=== PATIENT | female | born 1940 | race Caucasian/White ===

== ENCOUNTER → 2016-12-08 | Outpatient (CLI) | payer BC ==
[~2016-12-08] MED LIST: ATEN-173 PO; ATOR-22 PO; CALC-393 PO; CLOP1TAB15 PO; LEVA45AE INH; LEVO112T4 PO; MELA5CAP PO; MULTTAB58 PO; VITAMIN D PO; VNTHFA/IN INH
--- NOTE | 2016-12-08 13:08 | DIAGNOSTIC IMAGING REPORT ---
SACRUM AND COCCYX 3 VIEWS CLINICAL HISTORY: Fall with sacrococcygeal pain. FINDINGS: 3 views of the sacrum and coccyx are correlated with left hip radiographs dated 02/14/2013. The skeletal structures are osteopenic. There is no radiographic evidence of fracture involving the sacrum or coccyx. Mild sclerotic degenerative change is noted in the sacroiliac joints. The remainder the bony pelvis appears intact as visualized. Calcified phleboliths are noted in the pelvis. IMPRESSION: Osteopenia and degenerative change as above. There is no radiographic evidence of sacrococcygeal fracture. Electronically signed by: Jace Lance M.D. 12/08/2016 1:07 PM Dictated Date/Time: 12/08/2016 1:05 PM
== END | disposition home or self-care (01) ==
LOC: C.RAD1850 12:44
PROVIDERS: ATTEND Internal Medicine Cardiovascular Disease
DX: Z91.81 History of falling (principal); M85.88 Other specified disorders of bone density and structure, other site

== ENCOUNTER → 2017-01-05 | Outpatient (CLI) | payer BC ==
[2017-01-05 11:08] LABS: HEMATOCRIT 44.3 % (37-47); MEAN CELL VOLUME 97.4 fL (80-100); MEAN CORPUSCULAR HEMOGLOBIN 32.7 pg (25-34); MEAN CORPUSCULAR HGB CONC 33.6 g/dl (32-36); MEAN PLATELET VOLUME 11.1 fL (7.4-10.4); PLATELET COUNT 207 K/uL (130-400); RED BLOOD COUNT 4.55 M/uL (4.2-5.4); WHITE BLOOD COUNT 3.83 K/uL (4.8-10.8)
[2017-01-05 11:59] LABS: CHOLESTEROL/HDL RATIO 2.1; THYROID STIMULATING HORMONE 0.525 uIu/ml (0.300-4.500)
[2017-01-05 12:04] LABS: ESTIMATED AVERAGE GLUCOSE 117 mg/dl; HA1C FLAG Normal (Normal)
--- NOTE | 2017-01-09 12:08 | CODING QUERY MEDICAL NECESSITY ---
SUPPORTING DIAGNOSIS NEEDED A supporting diagnosis is required for the test/procedure performed on this patient in order for us to be reimbursed by the patient's insurance. Please provide a supporting diagnosis for the following test/procedure listed below next to the test name along with your signature. *If there is no additional diagnosis for this patient that would support the following test/procedure please document that below next to the test/procedure. Test(s)/Procedure(s) that require a supporting diagnosis: DOS 01/05 * Hba1c DIAGNOSIS: Provider Signature: Date: Thank you Rhonda Gtz Health Information Management Once completed, please kindly fax back to [phone] For questions please call [phone]
== END | disposition home or self-care (01) ==
LOC: C.LABBC 08:35
PROVIDERS: ATTEND Internal Medicine Cardiovascular Disease
DX: R73.03 Prediabetes (principal); G45.9 Transient cerebral ischemic attack, unspecified; R00.2 Palpitations; E03.9 Hypothyroidism, unspecified

== ENCOUNTER → 2017-01-13 | Outpatient (CLI) | payer BC ==
--- NOTE | 2017-01-13 15:21 | MAMMOGRAPHY REPORT ---
BILATERAL DIGITAL SCREENING MAMMOGRAM WITH CAD: 01/13/2017 CLINICAL HISTORY: Routine screening examination. TECHNIQUE: Bilateral CC and MLO views were obtained. Current study was also evaluated with a Comput er Aided Detection (CAD) system. COMPARISON: Comparison is made to exams dated: 01/08/2016 mammogram, 11/14/2013 mammogram, 11/15/2014 garima mogram, 11/11/2012 mammogram, 11/06/2011 mammogram, and 10/28/2010 mammogram - [facility] enter. BREAST COMPOSITION: There are scattered areas of fibroglandular density in both breasts. FINDINGS: A few punctate microcatheter calcifications are stable in the right breast. No new suspic ious mass, architectural distortion or cluster of microcalcifications is seen. IMPRESSION: ACR BI-RADS CATEGORY 1: NEGATIVE There is no mammographic evidence of malignancy. A 1 year screening mammogram is recommended. The p atient will receive written notification of the results. Approximately 10% of breast cancers are not detected with mammography. A negative mammographic repor t should not delay biopsy if a clinically suggestive mass is present. Tessa Parker M.D. ay/:01/13/2017 12:44:02 Spanish Lecturer: Pam PABLO(Bruno)([place]), [facility] letter sent: Normal 1/2 BI-RADS Code: ACR BI-RADS Category 1: Negative
== END | disposition home or self-care (01) ==
LOC: C.MAMM 10:23
PROVIDERS: ATTEND Obstetrics & Gynecology
DX: Z12.31 Encounter for screening mammogram for malignant neoplasm of breast (principal)

== ENCOUNTER → 2017-01-29 | Outpatient (CLI) | payer BC ==
[2017-01-29 11:26] LABS: CHOLESTEROL/HDL RATIO 2.2
== END | disposition home or self-care (01) ==
LOC: C.LABBC 08:47
PROVIDERS: ATTEND Internal Medicine
DX: G45.9 Transient cerebral ischemic attack, unspecified (principal)

== ENCOUNTER → 2017-04-01 | Outpatient (CLI) | payer BC ==
[2017-04-01 11:06] LABS: BLOOD UREA NITROGEN 12 mg/dl (7-18); BUN/CREATININE RATIO 16.9 (10-20); CARBON DIOXIDE 29 mmol/L (21-32); CHLORIDE 107 mmol/L (98-107); CREATININE 0.72 mg/dl (0.60-1.20); GLUCOSE 97 mg/dl (70-99); MAGNESIUM 2.1 mg/dl (1.8-2.4); POTASSIUM 4.2 mmol/L (3.5-5.1); SODIUM 142 mmol/L (136-145)
[2017-04-01 11:31] LABS: CALCIUM 9.5 mg/dl (8.5-10.1)
== END | disposition home or self-care (01) ==
LOC: C.LABBC 08:33
PROVIDERS: ATTEND Internal Medicine
DX: G62.9 Polyneuropathy, unspecified (principal)

== ENCOUNTER → 2017-05-06 | Outpatient (CLI) | payer BC | END | disposition home or self-care (01) | LOC: C.LABBC 07:41 | PROVIDERS: ATTEND Internal Medicine | DX: E67.2 Megavitamin-B6 syndrome (principal) ==

== ENCOUNTER → 2017-05-11 | Outpatient (CLI) | payer BC ==
[2017-05-11 12:45] LABS: ESTIMATED AVERAGE GLUCOSE 128 mg/dl; HA1C FLAG Normal (Normal)
[2017-05-11 13:12] LABS: BLOOD UREA NITROGEN 16 mg/dl (7-18); BUN/CREATININE RATIO 21.1 (10-20); CALCIUM 10.1 mg/dl (8.5-10.1); CARBON DIOXIDE 30 mmol/L (21-32); CHLORIDE 106 mmol/L (98-107); CREATININE 0.74 mg/dl (0.60-1.20); GLUCOSE 91 mg/dl (70-99); POTASSIUM 4.3 mmol/L (3.5-5.1); SODIUM 142 mmol/L (136-145)
[2017-05-11 13:23] LABS: THYROID STIMULATING HORMONE 0.255 uIu/ml (0.300-4.500)
== END | disposition home or self-care (01) ==
LOC: C.LAB1850 10:37
PROVIDERS: ATTEND Internal Medicine
DX: R73.03 Prediabetes (principal); E03.9 Hypothyroidism, unspecified

== ENCOUNTER → 2017-06-25 | Outpatient (CLI) | payer BC ==
--- NOTE | 2017-07-10 07:30 | CODING QUERY NO DIAGNOSIS ---
TREATMENT RENDERED WITHOUT A DIAGNOSIS : 1940 To promote full compliance with coding requirements relating to patient care, physician participation is requested in all cases of cable armorer operator uncertainty. Please assist us with providing a diagnosis/symptom for the test(s) below: A diagnosis/symptom was not documented on your Order. A valid diagnosis/symptom is required to bill all insurances. Please remember that we are unable to code a diagnosis of rule out, probable, possible, questionable, or suspected. Tests that require a diagnosis: DOS: 06/25/17 * VITAMIN B6 DIAGNOSIS: Provider Signature: Date: Thank you Amrita Goldberg Health Information Management Once completed, please kindly fax back to [phone] For questions please call [phone]
== END | disposition home or self-care (01) ==
LOC: C.LABBC 07:38
PROVIDERS: ATTEND Internal Medicine
DX: E67.2 Megavitamin-B6 syndrome (principal)

== ENCOUNTER → 2017-11-18 | Outpatient (CLI) | payer BC ==
--- NOTE | 2017-11-18 12:36 | DIAGNOSTIC IMAGING REPORT ---
CHEST 2 VIEWS ROUTINE CLINICAL HISTORY: R05 [id number] Fever and [id number] Shortness of breath dyspnea COMPARISON STUDY: 11/18/2012 FINDINGS: Slight interstitial prominence considered chronic. Diaphragms are smooth. No focal infiltrates. Pulmonary procedure clear. IMPRESSION: Chronic interstitial change. No acute process. The above report was generated using voice recognition software. It may contain grammatical, syntax or spelling errors. Electronically signed by: [place] M.D. 11/18/2017 12:35 PM Dictated Date/Time: 11/18/2017 12:35 PM
== END | disposition home or self-care (01) ==
LOC: C.RAD1850 12:22
PROVIDERS: ATTEND Nurse Practitioner Adult Health
DX: R50.9 Fever, unspecified (principal); R06.02 Shortness of breath; R05 Cough

== ENCOUNTER → 2018-01-12 | Outpatient (CLI) | payer BC ==
[2018-01-12 10:43] LABS: HEMOGLOBIN 14.9 g/dL (12.0-16.0); MEAN CELL VOLUME 99.3 fL (80-100); MEAN CORPUSCULAR HEMOGLOBIN 32.9 pg (25-34); MEAN CORPUSCULAR HGB CONC 33.1 g/dl (32-36); PLATELET COUNT 215 K/uL (130-400); RED CELL DISTRIBUTION WIDTH CV 12.6 % (11.5-14.5); RED CELL DISTRIBUTION WIDTH SD 45.6 fL (36.4-46.3); WHITE BLOOD COUNT 4.03 K/uL (4.8-10.8)
[2018-01-12 11:10] LABS: BLOOD UREA NITROGEN 9 mg/dl (7-18); CALCIUM 9.3 mg/dl (8.5-10.1); CARBON DIOXIDE 29 mmol/L (21-32); CHOLESTEROL 271 mg/dl (0-200); CREATININE 0.65 mg/dl (0.60-1.20); GLUCOSE 105 mg/dl (70-99); SODIUM 141 mmol/L (136-145)
[2018-01-12 11:21] LABS: LDL CHOLESTEROL CALCULATED 171 mg/dl
[2018-01-12 12:15] LABS: HEMOGLOBIN A1C 5.9 % (4.5-5.6)
== END | disposition home or self-care (01) ==
LOC: C.LABBC 07:35
PROVIDERS: ATTEND Internal Medicine
DX: R73.03 Prediabetes (principal); G62.9 Polyneuropathy, unspecified; I47.1 Supraventricular tachycardia; E03.9 Hypothyroidism, unspecified

== ENCOUNTER → 2018-01-15 | Outpatient (CLI) | payer BC ==
--- NOTE | 2018-01-15 13:54 | MAMMOGRAPHY REPORT ---
BILATERAL DIGITAL SCREENING MAMMOGRAM TOMOSYNTHESIS WITH CAD: 01/15/2018 CLINICAL HISTORY: Routine screening. Patient has no complaints. TECHNIQUE: Breast tomosynthesis in addition to standard 2D mammography was performed. Current study was also evaluated with a Computer Aided Detection (CAD) system. COMPARISON: Comparison is made to exams dated: 01/08/2016 mammogram, 01/13/2017 mammogram, 11/15/2014 mamm ogram, 11/14/2013 mammogram, 11/11/2012 mammogram, and 11/06/2011 mammogram - [facility] BREAST COMPOSITION: There are scattered areas of fibroglandular density in both breasts. FINDINGS: No suspicious masses, calcifications, or areas of architectural distortion are noted in ei ther breast. There has been no significant interval change compared to prior exams. A linear scar ma rker denotes a scar on the right upper outer breast. IMPRESSION: ACR BI-RADS CATEGORY 2: BENIGN There is no mammographic evidence of malignancy. A 1 year screening mammogram is recommended. The pa tient will receive written notification of the results. Approximately 10% of breast cancers are not detected with mammography. A negative mammographic report should not delay biopsy if a clinically suggestive mass is present. Katelin Joiner M.D. ah/:01/15/2018 12:33:33 Cath Lab Manager: Sharon HERNANDEZ)([place]), [facility] letter sent: Normal 1/2 BI-RADS Code: ACR BI-RADS Category 2: Benign
== END | disposition home or self-care (01) ==
LOC: C.MAMM 09:02
PROVIDERS: ATTEND Obstetrics & Gynecology
DX: Z12.31 Encounter for screening mammogram for malignant neoplasm of breast (principal)

== ENCOUNTER 2023-05-03 17:28 | Observation (INO) ==
--- NOTE | 2023-05-03 17:43 | Emergency Department Note ---
ED Provider Note History of Present Illness Chief Complaint: Abdominal Pain Stated Complaint: LOWER RT ABDOMINAL PAIN Time Seen by Provider: 05/03/23 17:39 This is an 82-year-old female with a history of TIA on clopidogrel every other day, paroxysmal SVT, asthma, hyperlipidemia, accompanied by her , who presents to the emergency department with 2 days of lower abdominal pain and nausea, and a subjective fever. Her abdominal pain began as some nonspecific discomfort in the lower abdomen and was initially somewhat intermittent but has become more constant and located in the right lower part of her abdomen. The pain is elicited by coughing, walking, or when she was riding here in the car, anytime they hit a bump she had increase in pain. She feels nauseous but has not vomited. Subjective fever was low-grade. She has not had any constipation or diarrhea. Denies any dysuria, hematuria, urinary frequency or hesitancy. No chest pain or shortness of breath. No back pain. She is currently finishing a Medrol Dosepak for swelling secondary to carpal tunnel release surgery that she had recently. No history of abdominal surgeries. Has had a colonoscopy in the past and was told that she had diverticulosis but no history of diverticulitis. She believes she took her Plavix yesterday, but not today Home Medications Medication Instructions Recorded Confirmed Type calcium carbonate 600 mg-vitamin 1 cap PO QAM 07/25/19 04/07/23 History D3 10 mcg (400 unit) capsule multivitamin 1 tab PO QAM 01/23/20 04/07/23 History magnesium carb,citrate,oxide 300 mg PO Q2D 12/17/21 04/07/23 History (Magnesium Complex) mecobalamin (vitamin B12) 1,000 1,000 mcg PO QAM 09/29/22 04/07/23 History mcg chewable tablet atenolol 25 mg tablet 25 mg PO HS #90 tabs 10/15/22 04/07/23 Rx buspirone 5 mg tablet 5 mg PO BID PRN anxiety #30 tabs 01/07/23 04/07/23 Rx cholecalciferol (vitamin D3) 25 11,000 unit PO QAM 01/07/23 04/07/23 History mcg (1,000 unit) tablet (Vitamin D3) clopidogrel 75 mg tablet 75 mg PO Q2D 01/07/23 04/07/23 History ezetimibe 10 mg tablet 10 mg PO QAM 01/07/23 04/07/23 History levothyroxine 112 mcg tablet 112 mcg PO QAM #90 tabs 01/07/23 04/07/23 Rx cyclobenzaprine 5 mg tablet 5 mg PO TID PRN muscle pain #30 02/10/23 04/07/23 Rx tabs hydrocodone 5 mg-acetaminophen 325 1 tab PO Q6H PRN pain #20 tabs 04/16/23 Rx mg tablet methylprednisolone 4 mg tablets in 4 mg PO UD #21 ea 04/28/23 04/28/23 Rx a dose pack (Medrol (Ignacio)) Allergies Allergy/AdvReac Type Severity Reaction Status Date / Time cephalexin Allergy Intermediate hives Verified 04/16/23 08:36 levofloxacin Allergy Intermediate RASH Verified 04/16/23 08:36 cantaloupe Allergy Mild ITCHY Verified 04/16/23 08:36 MOUTH WITH MELONS/CANTALOPE,WATERMELON,CANTALOPE cat dander Allergy Mild itchy eye Verified 04/16/23 08:36 and sneeze melon Allergy Mild ITCHY Verified 04/16/23 08:36 MOUTH WITH MELONS/CANTALOPE,WATERMELON,CANTALOPE tramadol Allergy Mild ITCHING Verified 04/16/23 08:36 vaccine adjuvant system, Allergy Mild Unresponsiv Verified 04/16/23 08:36 [id number] liposomal e [From Shingrix (PF)] varicella-zoster virus Allergy Mild Unknown Verified 04/16/23 08:36 glycoprotein E, recombinant [From Shingrix (PF)] amoxicillin Allergy Unknown itching Verified 04/16/23 08:36 hazelnut Allergy Unknown ITCHY MOUTH Verified 04/16/23 08:36 oxycodone Allergy Unknown Unknown Verified 04/16/23 08:36 squash Allergy Unknown GI SYMPTOMS Verified 04/16/23 08:36 zoster vaccine live Allergy Unknown rash, Verified 04/16/23 08:36 swelling crab AdvReac Unknown stomach Verified 04/16/23 08:36 ache Past Med/Surg History Medical History Asthma NO REGULAR USE OF INHALERS Carpal tunnel syndrome, bilateral Chronic constipation Confusion mild confusion - seen Dr Delaney in 11/30 Drug allergy Expressive aphasia ?TIA? 2016-PLACED ON PLAVIX-NO ISSUES SINCE PER PT-F/U DR DELANEY Hx of seasonal allergies Hyperlipidemia Hypothyroidism Idiopathic progressive polyneuropathy Migraine VISUAL DISTURBANCE-NO HEADACHE-F/U DR DELANEY Mild obstructive sleep apnea does not use device Neck muscle spasm Osteopenia Paroxysmal SVT (supraventricular tachycardia) pt denies Premature ventricular contractions takes atenolol; f/u Dr. [place], [facility] [place] Pulmonary nodule follow with [facility] Rosacea Sleep disturbances Surgical History H/O hand surgery [facility]. Trigger finger surgery Oct 2020 History of carpal tunnel surgery of left wrist [facility] 03/2022 S/P cataract surgery R/L S/P colonoscopy S/P dilatation and curettage S/P knee surgery RIGHT SCOPE S/P spinal surgery l4 -5 S/P trigger finger release Family History Mother Family history of diabetes mellitus Pure hypercholesterolemia Hypertension Glaucoma Stroke syndrome Diabetes Stroke Father Stroke syndrome Myocardial infarction Heart disease Other No family history of allergies No family history of bleeding disorder Denies family history of Ovarian cancer Prostate cancer Hearing loss Breast cancer Colorectal cancer Cancer Asthma Social History Smoking Status: Former smoker Tobacco Type: Cigarettes packs per day: 1; Second Hand Exposure: Yes (hx growing up); Do You Dip or Chew Tobacco: No; Hx Alcohol Use: Yes Alcohol type: wine Alcohol Intake Frequency Comment: 2 glasses of wine per day Hx Substance Use: No Preferred Language: Montserratian Communication Ability: Effective Visual Impairment: No Limitations Hearing Ability: Normal Telehealth Coordinator Required: No Beliefs That Will Affect Care: None marital status: Current Living Situation: Spouse current occupational status: retired How many Children do You have: 4 Feels Safe at Home: Yes Childhood Exposure to Second-Hand Smoke: Yes Dental Care, Regularly: Yes Physical Activity Frequency: Daily Seatbelt Use: always Sunscreen Use: Yes Assistive Devices: Glasses Physical Exam Vital Signs Vital Signs - 24 hr 05/03/23 17:29 05/03/23 17:40 05/03/23 17:40 Temperature 97.9 F Temperature Source Temporal Artery Scan Pulse Rate 82 76 Pulse Rate [Apical] 79 Respiratory Rate 20 18 18 Respiratory Effort / Characteristics Non-Labored Respiratory Depth Normal Respiratory Pattern Blood Pressure 155/87 H Blood Pressure [Right Arm] 144/79 H Blood Pressure Mean 109 Blood Pressure Mean [Right Arm] 100 Pulse Oximetry 93 94 94 Oxygen Delivery Method Room Air Room Air Sepsis Recent Fever Within 48 Hours No Sepsis New/Unexplained Change in Mental Status N/A Sepsis Action Taken by Nursing No Action Required 05/03/23 19:32 05/03/23 19:51 05/03/23 20:00 Temperature Temperature Source Pulse Rate 69 73 Pulse Rate [Apical] 76 Respiratory Rate 16 18 19 Respiratory Effort / Characteristics Non-Labored Respiratory Depth Normal Respiratory Pattern Regular Blood Pressure 141/73 H Blood Pressure [Right Arm] 139/72 Blood Pressure Mean 95 Blood Pressure Mean [Right Arm] 94 Pulse Oximetry 94 Oxygen Delivery Method Sepsis Recent Fever Within 48 Hours Sepsis New/Unexplained Change in Mental Status Sepsis Action Taken by Nursing 05/03/23 20:30 05/03/23 21:00 05/03/23 19:50 Temperature Temperature Source Pulse Rate 75 81 69 Pulse Rate [Apical] Respiratory Rate 20 23 Respiratory Effort / Characteristics Respiratory Depth Respiratory Pattern Blood Pressure 127/74 137/78 Blood Pressure [Right Arm] Blood Pressure Mean 91 97 Blood Pressure Mean [Right Arm] Pulse Oximetry 92 92 Oxygen Delivery Method Room Air Room Air Sepsis Recent Fever Within 48 Hours Sepsis New/Unexplained Change in Mental Status Sepsis Action Taken by Nursing CONSTITUTIONAL: Well developed, well nourished, in no acute distress, pleasant HEAD: Normocephalic, atraumatic. EYES: conjunctivae normal, extraocular muscles intact. No scleral icterus. ENMT: External ears normal. Nose with normal external appearance, no congestion. Oral mucous membranes moist. Oropharynx normal. NECK: Full active range of motion. RESPIRATORY: Breathing unlabored and symmetric. Lungs clear to auscultation bilaterally. No wheeze, rales, or rhonchi. CARDIOVASCULAR: Regular rate and rhythm. No murmurs, rubs, or gallops. ABDOMEN: Normal bowel sounds. Abdomen is soft. There is significant reproducible tenderness in the right lower quadrant at McBurney's point with positive rebound tenderness. Patient guards in this area. Positive Rovsing sign. Negative psoas or obturator signs. No additional tenderness in the abdomen. No pulsatile masses. No CVA tenderness bilaterally. MUSCULOSKELETAL: Moves all extremities at all joints without pain or difficulty. No cyanosis or edema. SKIN: [place], warm, dry. No rash NEUROLOGIC: Awake, alert, oriented. Gaze is conjugate. Face symmetric, speech normal. Moves head and all four extremities spontaneously. Sensation and strength grossly intact. PSYCHIATRIC: Appropriate. Normal affect Course Administered Medications Lactated Ringer's (Lr) 1,000 mls @ 100 mls/hr IV .Q10H SAL Stop: 06/02/23 20:14 Last Admin: 05/03/23 21:04 Dose: 100 mls/hr Documented By: KIMANI Discontinued Medications Acetaminophen (Ofirmev) 1,000 mg in 100 mls @ 400 mls/hr IV NOW STA Stop: 05/03/23 18:10 Last Infusion: 05/03/23 19:01 Dose: 0 mls/hr Documented By: Admin: 05/03/23 18:12 Dose: 400 mls/hr Documented By: SHE Sodium Chloride (Nss) 500 mls @ 999 mls/hr IV .Q31M ONE Stop: 05/03/23 18:26 Last Infusion: 05/03/23 19:01 Dose: 0 mls/hr Documented By: Admin: 05/03/23 18:13 Dose: 999 mls/hr Documented By: SHE Clindamycin Phosphate (Cleocin/D5w) 900 mg in 50 mls @ 100 mls/hr IV PREOP@2030 ONE Stop: 05/03/23 20:59 Last Admin: 05/03/23 21:04 Dose: 100 mls/hr Documented By: KIMANI Ioversol (Optiray 320 100ml) 93 ml IV ONCE ONE Stop: 05/03/23 19:18 Last Admin: 05/03/23 19:17 Dose: 93 ml Documented By: EAB Ondansetron HCl (Ondansetron Inj 2 Mg/Ml 2 Ml Vial) 4 mg IV NOW STA Stop: 05/03/23 17:57 Last Admin: 05/03/23 18:13 Dose: 4 mg Documented By: HNVinod Medical Decision Making Differential Diagnosis Appendicitis, diverticulitis, vascular event, mesenteric adenitis, ovarian pathology, cholecystitis, cholelithiasis, constipation, urinary tract infection, renal colic, pyelonephritis, malignancy, gastritis from steroids, perforation, ulceration, obstruction, among other pathology Medical Records Attestation: I reviewed the patient's medical records. (Reviewed medication list and problem list.) Laboratory Data 05/03/23 18:03 05/03/23 18:03 Lab Results 05/03/23 05/03/23 05/03/23 Range/Units 18:03 18:03 18:03 WBC 12.31 H (4.8-10.8) K/ul RBC 4.29 (4.20-5.40) M/uL Hgb 14.3 (12.0-16.0) g/dl Hct 42.1 (37.0-47.0) % MCV 98.1 (80.0-100.0) fL MCH 33.3 (25.0-34.0) pg MCHC 34.0 (32.0-36.0) g/dL RDW Std Deviation 45.3 (36.4-46.3) fL RDW Coeff of Marielos 12.7 (11.5-14.5) % Plt Count 182 (130-400) K/uL MPV 10.7 (9.4-12.4) fL Immature Gran % (Auto) 0.4 % Neut % (Auto) 72.7 % Lymph % (Auto) 13.3 % [place] % (Auto) 12.8 % Eos % (Auto) 0.6 % Baso % (Auto) 0.2 % Neut # (Auto) 8.94 H (1.40-6.50) K/uL Lymph # (Auto) 1.64 (1.2-3.4) K/uL [place] # (Auto) 1.57 H (0.11-0.59) K/uL Eos # (Auto) 0.08 (0-0.50) K/uL Baso # (Auto) 0.03 (0-0.2) K/uL Immature Gran # (Auto) 0.05 (0.01-0.20) K/uL PT Cancelled INR Cancelled APTT Cancelled PTT Ratio Cancelled Sodium TNP Potassium TNP Chloride 102 (98-107) mmol/L Carbon Dioxide 27 (21-32) mmol/L Anion Gap TNP BUN 18 (6-23) mg/dl Creatinine 0.67 (0.6-1.2) mg/dl Est Cr Clr Drug Dosing 64.6 ml/min Est GFR ( Amer) 95.5 ml/min Est GFR (Non-Af Amer) 82.4 ml/min BUN/Creatinine Ratio 26.9 H (10-20) Glucose 127 H (70-99(Fasting)) mg/dl Calcium 9.4 (8.6-10.3) mg/dl Total Bilirubin 0.8 (0.2-1.0) mg/dl AST TNP ALT 19 (7-52) U/L Alkaline Phosphatase 76 (34-104) U/L Total Protein 7.1 (6.0-8.3) gm/dl Albumin 3.8 (3.4-5.0) gm/dl Globulin 3.3 (2.5-4.0) gm/dl Albumin/Globulin Ratio 1.2 (0.9-2) Lipase 28 (11-82) U/L Urine Color Urine Appearance (Clear) Urine pH (4.5-7.5) Ur Specific Waterflow (1.000-1.030) Urine Protein (Negative) Urine Glucose (UA) (Negative) Urine Ketones (Negative) Urine Blood (Negative) Urine Nitrite (Negative) Urine Bilirubin (Negative) Urine Urobilinogen (Negative) Ur Leukocyte Esterase (Negative) Urine WBC (Auto) (0-5) /hpf Urine RBC (Auto) (0-4) /hpf U Hyaline Cast (Auto) (0-5) /lpf U Epithel Cells (Auto) (0-5) /lpf Urine Bacteria (Auto) (Negative) SARS-CoV-2, RNA, NAAT (NEGATIVE) 05/03/23 05/03/23 05/03/23 Range/Units 18:54 18:54 19:41 WBC (4.8-10.8) K/ul RBC (4.20-5.40) M/uL Hgb (12.0-16.0) g/dl Hct (37.0-47.0) % MCV (80.0-100.0) fL MCH (25.0-34.0) pg MCHC (32.0-36.0) g/dL RDW Std Deviation (36.4-46.3) fL RDW Coeff of Marielos (11.5-14.5) % Plt Count (130-400) K/uL MPV (9.4-12.4) fL Immature Gran % (Auto) % Neut % (Auto) % Lymph % (Auto) % [place] % (Auto) % Eos % (Auto) % Baso % (Auto) % Neut # (Auto) (1.40-6.50) K/uL Lymph # (Auto) (1.2-3.4) K/uL [place] # (Auto) (0.11-0.59) K/uL Eos # (Auto) (0-0.50) K/uL Baso # (Auto) (0-0.2) K/uL Immature Gran # (Auto) (0.01-0.20) K/uL PT 10.9 INR 1.0 APTT 25.4 PTT Ratio 0.9 Sodium 136 Potassium 3.7 Chloride (98-107) mmol/L Carbon Dioxide (21-32) mmol/L Anion Gap BUN (6-23) mg/dl Creatinine (0.6-1.2) mg/dl Est Cr Clr Drug Dosing ml/min Est GFR ( Amer) ml/min Est GFR (Non-Af Amer) ml/min BUN/Creatinine Ratio (10-20) Glucose (70-99(Fasting)) mg/dl Calcium (8.6-10.3) mg/dl Total Bilirubin (0.2-1.0) mg/dl AST 17 ALT (7-52) U/L Alkaline Phosphatase (34-104) U/L Total Protein (6.0-8.3) gm/dl Albumin (3.4-5.0) gm/dl Globulin (2.5-4.0) gm/dl Albumin/Globulin Ratio (0.9-2) Lipase (11-82) U/L Urine Color Urine Appearance (Clear) Urine pH (4.5-7.5) Ur Specific Waterflow (1.000-1.030) Urine Protein (Negative) Urine Glucose (UA) (Negative) Urine Ketones (Negative) Urine Blood (Negative) Urine Nitrite (Negative) Urine Bilirubin (Negative) Urine Urobilinogen (Negative) Ur Leukocyte Esterase (Negative) Urine WBC (Auto) (0-5) /hpf Urine RBC (Auto) (0-4) /hpf U Hyaline Cast (Auto) (0-5) /lpf U Epithel Cells (Auto) (0-5) /lpf Urine Bacteria (Auto) (Negative) SARS-CoV-2, RNA, NAAT NEGATIVE (NEGATIVE) 05/03/23 Range/Units 20:26 WBC (4.8-10.8) K/ul RBC (4.20-5.40) M/uL Hgb (12.0-16.0) g/dl Hct (37.0-47.0) % MCV (80.0-100.0) fL MCH (25.0-34.0) pg MCHC (32.0-36.0) g/dL RDW Std Deviation (36.4-46.3) fL RDW Coeff of Marielos (11.5-14.5) % Plt Count (130-400) K/uL MPV (9.4-12.4) fL Immature Gran % (Auto) % Neut % (Auto) % Lymph % (Auto) % [place] % (Auto) % Eos % (Auto) % Baso % (Auto) % Neut # (Auto) (1.40-6.50) K/uL Lymph # (Auto) (1.2-3.4) K/uL [place] # (Auto) (0.11-0.59) K/uL Eos # (Auto) (0-0.50) K/uL Baso # (Auto) (0-0.2) K/uL Immature Gran # (Auto) (0.01-0.20) K/uL PT INR APTT PTT Ratio Sodium Potassium Chloride (98-107) mmol/L Carbon Dioxide (21-32) mmol/L Anion Gap BUN (6-23) mg/dl Creatinine (0.6-1.2) mg/dl Est Cr Clr Drug Dosing ml/min Est GFR ( Amer) ml/min Est GFR (Non-Af Amer) ml/min BUN/Creatinine Ratio (10-20) Glucose (70-99(Fasting)) mg/dl Calcium (8.6-10.3) mg/dl Total Bilirubin (0.2-1.0) mg/dl AST ALT (7-52) U/L Alkaline Phosphatase (34-104) U/L Total Protein (6.0-8.3) gm/dl Albumin (3.4-5.0) gm/dl Globulin (2.5-4.0) gm/dl Albumin/Globulin Ratio (0.9-2) Lipase (11-82) U/L Urine Color Yellow Urine Appearance Clear (Clear) Urine pH 7.0 (4.5-7.5) Ur Specific Waterflow 1.018 (1.000-1.030) Urine Protein Negative (Negative) Urine Glucose (UA) Negative (Negative) Urine Ketones Negative (Negative) Urine Blood Negative (Negative) Urine Nitrite Negative (Negative) Urine Bilirubin Negative (Negative) Urine Urobilinogen Negative (Negative) Ur Leukocyte Esterase 2+ H (Negative) Urine WBC (Auto) 10-30 H (0-5) /hpf Urine RBC (Auto) 0-4 (0-4) /hpf U Hyaline Cast (Auto) 0 (0-5) /lpf U Epithel Cells (Auto) 10-20 H (0-5) /lpf Urine Bacteria (Auto) Negative (Negative) SARS-CoV-2, RNA, NAAT (NEGATIVE) Imaging Data Radiologist's Impression: Abdomen/Pelvis CT 05/03/23 17:56 CT OF THE ABDOMEN AND PELVIS WITH CONTRAST CLINICAL HISTORY: 2 days RLQ pain, nausea. Tender Mcburney point COMPARISON STUDY: CT of the abdomen and pelvis May 01, 2022 TECHNIQUE: Following IV administration of Optiray, axial images of the abdomen and pelvis were obtained from the lung bases to the proximal femurs. Images were reviewed in the axial, sagittal, and coronal planes. IV contrast was admini stered without complication. Automated exposure control was utilized for the study. A dose lowering technique was utilized adhering to the principles of ALARA. CT DOSE: 917.89 mGy.cm FINDINGS: Lung bases are unremarkable. No pneumatosis, free air or portal venous gas is present. A subcentimeter segment 6 hepatic lesion is unchanged. This is benign. There is no biliary or pancreatic ductal dilatation. The spleen, adrenal glands and pancreas are unremarkable. There is no hydronephrosis. There is no evidence for a bowel obstruction. A 5 mm appendicolith within the base of the appendix is noted. There are 2 additional appendicoliths within the appendix. The appendix is dilated, measuring 1.3 cm in caliber. The appendix is fluid- filled. There is moderate periappendiceal inflammation. No free air or abscess is noted. Wall thickening of the base of the appendix is noted. There is no lymphadenopathy. Major vasculature is patent. IMPRESSION: Findings consistent with acute appendicitis. 5 mm appendicolith within the base of the appendix. Fluid-filled dilated appendix with moderate periappendiceal inflammation. No free air or abscess. Wall thickening of the medial base of the cecum likely related to appendicitis. ACT 112: Negative or not required by law. Electronically signed by: Bill Liu M.D. 05/03/2023 7:22 PM MDM Narrative This is a pleasant 82-year-old female who presents to the emergency department with 2 days of lower abdominal pain accompanied by nausea and subjective fever. Pain has localized to the right lower quadrant today. On exam she is well- appearing in no acute distress with reassuring vital signs. She is certainly nontoxic. There is reproducible tenderness in the right lower quadrant with positive rebound tenderness and guarding, positive Rovsing sign. Remainder of exam is reassuring. Options of care were discussed with the patient. She was offered pain medication and wanted to try Tylenol initially. She was also given Zofran for nausea. Gentle IV fluids were administered. An IV was inserted and labs were obtained. Labs: Leukocytosis of 12.3. Coags are normal. No electrolyte disturbance. Lipase is normal. Urine pending CT of the abdomen and pelvis with contrast was obtained consistent with acute appendicitis. Case was discussed with George Crouch PA-C (general surgery) and who evaluated the patient at bedside and discussed case with Dr. Milner (general surgery). She will be treated with clindamycin due to her history of allergies. They accept the patient and will take her to the OR in 2 hours. Patient remained hemodynamically stable and did not require any additional pain medication. Impression Acute appendicitis Discharge Plan Visit Data Chief Complaint: Abdominal Pain Stated Complaint: LOWER RT ABDOMINAL PAIN ED Provider: Elijah Mendes ED Midlevel Provider: Doug King Discharge Problem: Acute appendicitis Patient Disposition: Being Evaluated by Surgeon Condition: Fair Discharge Instructions Interventions: ED Discharge Assessment Last Done: 05/03/23 21:19 Forms Stand Alone Forms: [email or web address] Prescriptions Prescriptions: No Action atenolol 25 mg tablet 25 mg PO HS Qty: 90 3RF cyclobenzaprine 5 mg tablet 5 mg PO TID PRN (Reason: muscle pain) Qty: 30 0RF mecobalamin (vitamin B12) 1,000 mcg tablet,chewable 1,000 mcg PO QAM methylprednisolone [Medrol (Ignacio)] 4 mg tablets,dose pack 4 mg PO UD Qty: 21 0RF calcium carbonate-vitamin D3 600 mg(1,500mg) -400 unit capsule 1 cap PO QAM Patient Comments: 1 cap PO DAILY; Rx Instructions: 1 cap PO DAILY; Magnesium Complex 300 mg magnesium tablet 300 mg PO Q2D ezetimibe 10 mg tablet 10 mg PO QAM clopidogrel 75 mg tablet 75 mg PO Q2D levothyroxine 112 mcg tablet 112 mcg PO QAM Qty: 90 3RF buspirone 5 mg tablet 5 mg PO BID PRN (Reason: anxiety) Qty: 30 2RF multivitamin Tablet 1 tab PO QAM cholecalciferol (vitamin D3) [Vitamin D3] 25 mcg (1,000 unit) tablet 11,000 unit PO QAM hydrocodone-acetaminophen 5-325 mg tablet 1 tab PO Q6H PRN (Reason: pain) Qty: 20 0RF Referrals Referrals: Apple Curran MD [Primary Care Provider] - Acute appendicitis Qualifiers: Acute appendicitis type: with localized peritonitis Appendicitis gangrene presence: without gangrene Appendicitis perforation presence: without perforatio n Appendicitis abscess presence: without abscess Qualified Code(s): K35.30 - Acute appendicitis with localized peritonitis, without perforation or gangrene
[2023-05-03] MEDS ORDERED: ACETAMINOPHEN 1,000 MG/100 ML VIAL IV STA (17:56)
[2023-05-03] MEDS ORDERED: ONDANSETRON INJ 2 MG/ML 2 ML VIAL IV STA (17:56)
[2023-05-03] MEDS ORDERED: SODIUM CHLORIDE 0.9% 500 ML IV ONE (17:56)
[2023-05-03 18:24] LABS: Basophils # (auto) 0.03 K/uL (0-0.2); Basophils % (auto) 0.2 %; Eosinophils # (auto) 0.08 K/uL (0-0.50); Eosinophils % (auto) 0.6 %; Hematocrit (blood only) 42.1 % (37.0-47.0); Hemoglobin 14.3 g/dl (12.0-16.0); Immature Granulocytes # (auto) 0.05 K/uL (0.01-0.20); Immature Granulocytes % (auto) 0.4 %; Lymphocytes # (auto) 1.64 K/uL (1.2-3.4); Lymphocytes % (auto) 13.3 %; Mean Corpuscular Hemoglobin 33.3 pg (25.0-34.0); Mean Corpuscular Volume 98.1 fL (80.0-100.0); Mean Platelet Volume 10.7 fL (9.4-12.4); Monocytes # (auto) 1.57 K/uL (0.11-0.59); Monocytes % (auto) 12.8 %; Neutrophils # (auto) 8.94 K/uL (1.40-6.50); Neutrophils % (auto) 72.7 %; Platelet Count 182 K/uL (130-400); RDW Coefficient of Variation 12.7 % (11.5-14.5); RDW Standard Deviation 45.3 fL (36.4-46.3); Red Blood Count 4.29 M/uL (4.20-5.40); White Blood Count 12.31 K/ul (4.8-10.8)
[2023-05-03 18:39] LABS: Alanine Aminotransferase 19 U/L (7-52); Albumin Globulin Ratio 1.2 (0.9-2); Albumin Level 3.8 gm/dl (3.4-5.0); Alkaline Phosphatase 76 U/L (34-104); BUN Creatinine Ratio 26.9 (10-20); Bilirubin,Total 0.8 mg/dl (0.2-1.0); Blood Urea Nitrogen 18 mg/dl (6-23); Calcium 9.4 mg/dl (8.6-10.3); Carbon Dioxide 27 mmol/L (21-32); Chloride 102 mmol/L (98-107); Creatinine Clr Calc Pharmacy 64.6 ml/min; Est GFR (African American) 95.5 ml/min; Est GFR (Non-African American) 82.4 ml/min; Globulin 3.3 gm/dl (2.5-4.0); Glucose 127 mg/dl (70-99(Fasting)); Lipase 28 U/L (11-82); Total Protein 7.1 gm/dl (6.0-8.3)
[2023-05-03] MEDS ORDERED: OPTIRAY 320 100ml IV ONE (19:17)
[2023-05-03 19:24] LABS: Potassium 3.7 mmol/L (3.5-5.1)
--- NOTE | 2023-05-03 19:24 | CT Scan Report ---
CT OF THE ABDOMEN AND PELVIS WITH CONTRAST CLINICAL HISTORY: 2 days RLQ pain, nausea. Tender Mcburney point COMPARISON STUDY: CT of the abdomen and pelvis May 01, 2022 TECHNIQUE: Following IV administration of Optiray, axial images of the abdomen and pelvis were obtain ed from the lung bases to the proximal femurs. Images were reviewed in the axial, sagittal, and coron al planes. IV contrast was administered without complication. Automated exposure control was utilize d for the study. A dose lowering technique was utilized adhering to the principles of ALARA. CT DOSE: 917.89 mGy.cm FINDINGS: Lung bases are unremarkable. No pneumatosis, free air or portal venous gas is present. A pearson bcentimeter segment 6 hepatic lesion is unchanged. This is benign. There is no biliary or pancreatic ductal dilatation. The spleen, adrenal glands and pancreas are unremarkable. There is no hydronephros is. There is no evidence for a bowel obstruction. A 5 mm appendicolith within the base of the appendi x is noted. There are 2 additional appendicoliths within the appendix. The appendix is dilated, measu ring 1.3 cm in caliber. The appendix is fluid-filled. There is moderate periappendiceal inflammation. No free air or abscess is noted. Wall thickening of the base of the appendix is noted. There is no l ymphadenopathy. Major vasculature is patent. IMPRESSION: Findings consistent with acute appendicitis. 5 mm appendicolith within the base of the a ppendix. Fluid-filled dilated appendix with moderate periappendiceal inflammation. No free air or abs cess. Wall thickening of the medial base of the cecum likely related to appendicitis. ACT 112: Negative or not required by law. Electronically signed by: Bill Liu M.D. 05/03/2023 7:22 PM
--- NOTE | 2023-05-03 19:37 | Emergency Department Note ---
ED Visit Note I was consulted by the Advanced Practice Provider, Doug King PA-C. I saw the patient personally and performed a substantive portion of the visit. This includes aspects of the HPI, MDM, diagnostic interpretations, and disposition/plan. .
[2023-05-03 20:00] LABS: Partial Thromboplastin Ratio 0.9; Partial Thromboplastin Time 25.4 Seconds (21.0-31.0); Prothrombin Time 10.9 Seconds (9.0-12.0)
[2023-05-03] MEDS ORDERED: CLINDAMYCIN/D5W 900 MG/50 ML BAG IV ONE (20:30)
[2023-05-03 20:51] LABS: Appearance Urine Clear (Clear); Bacteria Urine Automated Negative (Negative); Bilirubin Urine Negative (Negative); Blood Urine Negative (Negative); Cast Urine Automated 0 /lpf (0-5); Color Urine Yellow; Glucose Urine UA Negative (Negative); Ketones Urine Negative (Negative); Leukocyte Esterase Urine 2+ (Negative); Nitrite Urine Negative (Negative); Protein Urine Negative (Negative); RBC Urine Automated 0-4 /hpf (0-4); Specific Gravity Urine 1.018 (1.000-1.030); Urobilinogen Urine Negative (Negative)
--- NOTE | 2023-05-03 20:54 | History & Physical Report ---
Date of Service May 03, 2023 Assessment & Plan (1) Acute appendicitis: Plan: Due to the patient's labs, imaging, and clinical presentation she will be admitted to the hospital proceeding as follows: We will hydrate her with IV fluids Analgesia will be provided Antiemetics will be provided N.p.o. status will be implemented We will administer antibiotics. I have discussed with the patient her numerous medication allergies. She says that she is allergic to penicillin and penicillin derivatives which cause hives and rash at times. I did question her if she is ever taken clindamycin and she believes she has never taken this medication and therefore cannot delineate if she has an allergic reaction of this. We will use clindamycin for preoperative antibiotics due to her noted allergies. We have scheduled the patient for an appendectomy with Dr. Milner this evening. As the patient had a piece of toast at approximately 4:30 PM this evening we have discussed with anesthesia and can proceed with her surgery at approximately 10:30 PM. Additional recommendations be forthcoming based on her operative findings and postoperative recovery We will use SCDs for DVT prevention, no chemical means due to planned surgery She will be a level 1 full code History of Present Illness Chief Complaint: Abdominal pain Primary Care Provider: Apple Curran MD This is an 82-year-old female who presented to the emergency department secondary to abdominal pain. The patient notes that her abdominal pain began in a generalized fashion on 05/02/2023. The pain is subsequent shifted to the right lower quadrant. She has been running low-grade fevers as high as 99.8 at home. She has had nausea without vomiting. She denies any prior abdominal surgeries. Concerning the patient's pain she does not note any modifying factors. Her most recent oral intake was at approximately 4:30 PM on 05/03/2023 at which time she had a piece of toast. Patient says that she leads a very active lifestyle doing a cardiovascular workout several times per week. She does not get any chest pain or shortness of breath when she performs these activities. 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 She says that she believes she took her Plavix yesterday morning. With her TIA she did have loss of speech but she has made a full recovery and has not had any recurrence of these problems. Since arrival to the hospital the patient has had labs and imaging which I independent reviewed. Chest x-ray did not show any evidence of pneumonia. A CT scan of the abdomen pelvis showed the patient had a 5 mm appendicolith at the base of the appendix with a fluid-filled and dilated appendix with moderate periappendiceal inflammation consistent with an acute appendicitis. There is no evidence of free air or abscess. Labs include a CBC her white blood cell count was 12.3. Hemoglobin, hematocrit, platelet count were normal. Coagulation studies were normal. Chemistry profile showed sodium, potassium, BUN, and creatinine were normal. There is no elevation of LFTs or lipase. A COVID test was negative. An EKG showed sinus rhythm without changes indicative of acute ischemia At the time of my interview the patient was resting comfortably in bed and she was in no distress. Allergies Allergy/AdvReac Type Severity Reaction Status Date / Time cephalexin Allergy Intermediate hives Verified 04/16/23 08:36 levofloxacin Allergy Intermediate RASH Verified 04/16/23 08:36 cantaloupe Allergy Mild ITCHY Verified 04/16/23 08:36 MOUTH WITH MELONS/CANTALOPE,WATERMELON,CANTALOPE cat dander Allergy Mild itchy eye Verified 04/16/23 08:36 and sneeze melon Allergy Mild ITCHY Verified 04/16/23 08:36 MOUTH WITH MELONS/CANTALOPE,WATERMELON,CANTALOPE tramadol Allergy Mild ITCHING Verified 04/16/23 08:36 vaccine adjuvant system, Allergy Mild Unresponsiv Verified 04/16/23 08:36 AS01B liposomal e [From Shingrix (PF)] varicella-zoster virus Allergy Mild Unknown Verified 04/16/23 08:36 glycoprotein E, recombinant [From Shingrix (PF)] amoxicillin Allergy Unknown itching Verified 04/16/23 08:36 hazelnut Allergy Unknown ITCHY MOUTH Verified 04/16/23 08:36 oxycodone Allergy Unknown Unknown Verified 04/16/23 08:36 squash Allergy Unknown GI SYMPTOMS Verified 04/16/23 08:36 zoster vaccine live Allergy Unknown rash, Verified 04/16/23 08:36 swelling crab AdvReac Unknown stomach Verified 04/16/23 08:36 ache Home Medications Medication Instructions Recorded Confirmed Type calcium carbonate 600 mg-vitamin 1 cap PO QAM 07/25/19 04/07/23 History D3 10 mcg (400 unit) capsule multivitamin 1 tab PO QAM 01/23/20 04/07/23 History magnesium carb,citrate,oxide 300 mg PO Q2D 12/17/21 04/07/23 History (Magnesium Complex) mecobalamin (vitamin B12) 1,000 1,000 mcg PO QAM 09/29/22 04/07/23 History mcg chewable tablet atenolol 25 mg tablet 25 mg PO HS #90 tabs 10/15/22 04/07/23 Rx buspirone 5 mg tablet 5 mg PO BID PRN anxiety #30 tabs 01/07/23 04/07/23 Rx cholecalciferol (vitamin D3) 25 11,000 unit PO QAM 01/07/23 04/07/23 History mcg (1,000 unit) tablet (Vitamin D3) clopidogrel 75 mg tablet 75 mg PO Q2D 01/07/23 04/07/23 History ezetimibe 10 mg tablet 10 mg PO QAM 01/07/23 04/07/23 History levothyroxine 112 mcg tablet 112 mcg PO QAM #90 tabs 01/07/23 04/07/23 Rx cyclobenzaprine 5 mg tablet 5 mg PO TID PRN muscle pain #30 02/10/23 04/07/23 Rx tabs hydrocodone 5 mg-acetaminophen 325 1 tab PO Q6H PRN pain #20 tabs 04/16/23 Rx mg tablet methylprednisolone 4 mg tablets in 4 mg PO UD #21 ea 04/28/23 04/28/23 Rx a dose pack (Medrol (Ignacio)) Past Med/Surg History Medical History Asthma NO REGULAR USE OF INHALERS Carpal tunnel syndrome, bilateral Chronic constipation Confusion mild confusion - seen Dr Delaney in 11/30 Drug allergy Expressive aphasia ?TIA? 2016-PLACED ON PLAVIX-NO ISSUES SINCE PER PT-F/U DR DELANEY Hx of seasonal allergies Hyperlipidemia Hypothyroidism Idiopathic progressive polyneuropathy Migraine VISUAL DISTURBANCE-NO HEADACHE-F/U DR DELANEY Mild obstructive sleep apnea does not use device Neck muscle spasm Osteopenia Paroxysmal SVT (supraventricular tachycardia) pt denies Premature ventricular contractions takes atenolol; f/[facility] Mad[facility], [facility] Pulmonary nodule follow with [facility] Rosacea Sleep disturbances Surgical History H/O hand surgery [facility]. Trigger finger surgery Oct 2020 History of carpal tunnel surgery of left wrist [facility] 03/2022 S/P cataract surgery R/L S/P colonoscopy S/P dilatation and curettage S/P knee surgery RIGHT SCOPE S/P spinal surgery l4 -5 S/P trigger finger release Family History Mother Family history of diabetes mellitus Pure hypercholesterolemia Hypertension Glaucoma Stroke syndrome Diabetes Stroke Father Stroke syndrome Myocardial infarction Heart disease Other No family history of allergies No family history of bleeding disorder Denies family history of Ovarian cancer Prostate cancer Hearing loss Breast cancer Colorectal cancer Cancer Asthma Social History Smoking Status: Former smoker Tobacco Type: Cigarettes packs per day: 1; Second Hand Exposure: Yes (hx growing up); Do You Dip or Chew Tobacco: No; Hx Alcohol Use: Yes Alcohol type: wine Alcohol Intake Frequency Comment: 2 glasses of wine per day Hx Substance Use: No Preferred Language: [place] Communication Ability: Effective Visual Impairment: No Limitations Hearing Ability: [place] Program Technician Required: No Beliefs That Will Affect Care: None marital status: Current Living Situation: Spouse current occupational status: retired How many Children do You have: 4 Feels Safe at Home: Yes Childhood Exposure to Second-Hand Smoke: Yes Dental Care, Regularly: Yes Physical Activity Frequency: Daily Seatbelt Use: always Sunscreen Use: Yes Assistive Devices: Glasses Review of Systems Constitutional: + fever; no chills Ear, Nose, Mouth, Throat: no ear pain Respiratory: no cough and no dyspnea Cardiovascular: no chest pain Gastrointestinal: as per Subjective / HPI Genitourinary: no dysuria Musculoskeletal: no back pain Integumentary: no rash Neurologic: no localized weakness Physical Exam Constitutional: WD/WN, vitals as above Eyes: no conjunctival abnormality ENMT: Ears: no hearing impairment and no external ear abnormality Mouth: no oropharynx abnormality Neck: trachea midline Respiratory: normal respiratory effort, lungs clear to auscultation Cardiovascular: Rate/Rhythm: regular rate and regular rhythm Vessels: dorsalis pedis pulses present and radial pulses present Gastrointestinal (Abdomen): Abdomen is soft and nondistended. It is nonrigid. Rovsing sign was positive. Patient had marked tenderness with light and deep palpation in the right lower quadrant over McBurney's point. Musculoskeletal: No calf tenderness Skin: no rashes Neurologic: moves all extremities Psychiatric: A+Ox3, euthymic affect Results & Data Results & Data Vital Signs (Past 12 Hours) Vital Signs Temp Pulse Pulse Resp BP BP Pulse Ox 05/03/23 19:32 76 16 139/72 94 05/03/23 17:40 76 18 94 05/03/23 17:40 79 18 144/79 H 94 05/03/23 17:29 36.6 C 82 20 155/87 H 93 O2 Del Method 05/03/23 19:32 05/03/23 17:40 Room Air 05/03/23 17:40 05/03/23 17:29 Room Air Supervising Physician Co-Signing Physician Notes As per George Crouch physician doctor assistant Patient has an episode of expressive aphasia number years ago while she was visiting [place] after that she was evaluated at [facility] did not really find an etiology of that episode they recommended to take Plavix which she has been taking was taking it 1 every other day She been experiencing lower abdominal discomfort the last 24 hours certainly increased in intensity and her encouraged her to come to the emergency room to be evaluated for possible appendicitis She states she had a grandson who had a ruptured appendix and had a rough time associated with that She denies any vomiting pain is significant localized to right lower quadrant CT scan was reviewed Marcelo with tender and rebound the right lower quadrant McBurney's point rest of the abdomen is negative no previous abdominal surgery Options of therapy including antibiotics was given to the patient and discussed with her the possibility of going this route including contraindication namely a appendicolith and also her age cannot rule out a malignancy of the appendix therefore we will proceed with laparoscopic appendectomy possible open Risk and complication including the bleeding associated with Plavix were discussed with her she would like to proceed accordingly Permit signed all questions answered PG Care Time/CCT Total # of Minutes Spent Total Time Spent with Patient: Total time spent is greater than 50% in coordination of care (as documented) at patient's floor/unit and/or counseling patient: Coding Level of Care Code 79723 INT INP/OBS CARE 3/75MIN Diagnoses Acute appendicitis K35.30 Acute appendicitis type: with localized peritonitis Appendicitis abscess presence: without abscess Appendicitis gangrene presence: without gangrene Appendicitis perforation presence: without perforation (1) Acute appendicitis Acute appendicitis type: with localized peritonitis Appendicitis abscess presence: without abscess Appendicitis gangrene presence: without gangrene Appendicitis perforation presence: without perforation Qualified Code(s): K35.30 - Acute appendicitis with localized peritonitis, without perforation or gangrene
[2023-05-03] MEDS ORDERED: ACETAMINOPHEN 1,000 MG/100 ML VIAL IV PRN (21:01)
[2023-05-03] MEDS ORDERED: ONDANSETRON INJ 2 MG/ML 2 ML VIAL IV PRN ×2 (21:02→22:14)
[2023-05-03] MEDS: LACTATED RINGER'S 1,000 ML IV SCH (21:04)
[2023-05-03] MEDS ORDERED: LIDOCAINE 1%/EPINEPHRINE 1:100,000 20 ML VIAL ONE (21:06)
[2023-05-03] MEDS ORDERED: PROPOFOL IV EMULSION 10 MG/ML 20 ML VIAL IV ONE (21:23)
[2023-05-03] MEDS ORDERED: ROCURONIUM BROMIDE 10 MG/ML 5 ML VIAL IV ONE (21:23)
[2023-05-03] MEDS ORDERED: fentaNYL citrate PF 100 MCG/2 ML VIAL ONE ×3 (21:23→23:06)
[2023-05-03] MEDS ORDERED: SUGAMMADEX SODIUM 200 MG/2 ML VIAL IV ONE (21:28)
[2023-05-03] MEDS ORDERED: ATROPINE SULFATE 0.1 MG/ML 10ML SYR IV PRN (22:14)
[2023-05-03] MEDS ORDERED: HYDROmorphone INJ 1 MG/ML SYRINGE IV PRN (22:14)
[2023-05-03] MEDS ORDERED: fentaNYL citrate PF 100 MCG/2 ML VIAL IV PRN (22:14)
[2023-05-03] MEDS ORDERED: ePHEDrine sulfate 50 MG/ML AMP IV PRN (22:14)
--- NOTE | 2023-05-03 22:24 | Anesthesiology Consultation ---
Date of Service May 03, 2023 Assessment & Plan ASA ASA3E Proposed Anesthesia Anesthesia Type: General Risk / Benefits Reviewed With: PT / POA / Parent / Guardian, Accepts Plan and Informed Consent Obtained History Surgery Operation Date: 05/03/23 22:30 Proposed Procedures p Laparoscopic Appendectomy - Paulo Milner MD, FACS Height/Weight Height: 5 ft 5 in Weight: 69.9 kg Allergies Allergy/AdvReac Type Severity Reaction Status Date / Time cephalexin Allergy Intermediate hives Verified 04/16/23 08:36 levofloxacin Allergy Intermediate RASH Verified 04/16/23 08:36 cantaloupe Allergy Mild ITCHY Verified 04/16/23 08:36 MOUTH WITH MELONS/CANTALOPE,WATERMELON,CANTALOPE cat dander Allergy Mild itchy eye Verified 04/16/23 08:36 and sneeze melon Allergy Mild ITCHY Verified 04/16/23 08:36 MOUTH WITH MELONS/CANTALOPE,WATERMELON,CANTALOPE tramadol Allergy Mild ITCHING Verified 04/16/23 08:36 vaccine adjuvant system, Allergy Mild Unresponsiv Verified 04/16/23 08:36 AS01B liposomal e [From Shingrix (PF)] varicella-zoster virus Allergy Mild Unknown Verified 04/16/23 08:36 glycoprotein E, recombinant [From Shingrix (PF)] amoxicillin Allergy Unknown itching Verified 04/16/23 08:36 hazelnut Allergy Unknown ITCHY MOUTH Verified 04/16/23 08:36 oxycodone Allergy Unknown Unknown Verified 04/16/23 08:36 squash Allergy Unknown GI SYMPTOMS Verified 04/16/23 08:36 zoster vaccine live Allergy Unknown rash, Verified 04/16/23 08:36 swelling crab AdvReac Unknown stomach Verified 04/16/23 08:36 ache Medications Home Medications Medication Instructions Recorded Confirmed Last Taken calcium carbonate 600 mg-vitamin 1 cap PO QAM 07/25/19 04/07/23 04/02/22 D3 10 mcg (400 unit) capsule multivitamin 1 tab PO QAM 01/23/20 04/07/23 04/02/22 magnesium carb,citrate,oxide 300 mg PO Q2D 12/17/21 04/07/23 04/02/22 (Magnesium Complex) mecobalamin (vitamin B12) 1,000 1,000 mcg PO QAM 09/29/22 04/07/23 Unknown mcg chewable tablet atenolol 25 mg tablet 25 mg PO HS #90 tabs 10/15/22 04/07/23 Unknown buspirone 5 mg tablet 5 mg PO BID PRN anxiety #30 tabs 01/07/23 04/07/23 Unknown cholecalciferol (vitamin D3) 25 11,000 unit PO QAM 01/07/23 04/07/23 Unknown mcg (1,000 unit) tablet (Vitamin D3) clopidogrel 75 mg tablet 75 mg PO Q2D 01/07/23 04/07/23 Unknown ezetimibe 10 mg tablet 10 mg PO QAM 01/07/23 04/07/23 04/16/23 07:00 levothyroxine 112 mcg tablet 112 mcg PO QAM #90 tabs 01/07/23 04/07/23 04/16/23 07:00 cyclobenzaprine 5 mg tablet 5 mg PO TID PRN muscle pain #30 02/10/23 04/07/23 Unknown tabs hydrocodone 5 mg-acetaminophen 325 1 tab PO Q6H PRN pain #20 tabs 04/16/23 Unknown mg tablet methylprednisolone 4 mg tablets in 4 mg PO UD #21 ea 04/28/23 04/28/23 Unknown a dose pack (MindOpsrol (Ignacio)) Active Medications Generic Name Dose Route Start Last Admin Trade Name Freq PRN Reason Stop Dose Admin Lactated Ringer's 1,000 mls @ 100 mls/hr 05/03/23 20:15 05/03/23 21:04 Lr IV 06/02/23 20:14 100 mls/hr .Q10H SAL Administration NPO Date Last Intake of Fluids: 05/03/23 Time Last Intake of Fluids: 16:00 Date Last Intake of Solids: 05/03/23 Time Last Intake of Solids: 16:00 Last Intake of Solids Comment: toast Past Medical History Medical History Asthma NO REGULAR USE OF INHALERS Carpal tunnel syndrome, bilateral Chronic constipation Confusion mild confusion - seen Dr Delaney in 11/30 Drug allergy Expressive aphasia ?TIA? 2016-PLACED ON PLAVIX-NO ISSUES SINCE PER PT-F/U DR DELANEY Hx of seasonal allergies Hyperlipidemia Hypothyroidism Idiopathic progressive polyneuropathy Migraine VISUAL DISTURBANCE-NO HEADACHE-F/U DR DELANEY Mild obstructive sleep apnea does not use device Neck muscle spasm Osteopenia Paroxysmal SVT (supraventricular tachycardia) pt denies Premature ventricular contractions takes atenolol; f/u Dr. Madera, [place] Pulmonary nodule follow with [facility] Rosacea Sleep disturbances Exercise / Class Metabolic Activity II 4-5 Yardwork/Stairs/Walk up hill Past Family History Family History Mother Family history of diabetes mellitus Pure hypercholesterolemia Hypertension Glaucoma Stroke syndrome Diabetes Stroke Father Stroke syndrome Myocardial infarction Heart disease Other No family history of allergies No family history of bleeding disorder Denies family history of Ovarian cancer Prostate cancer Hearing loss Breast cancer Colorectal cancer Cancer Asthma Past Surgical History Surgical History H/O hand surgery [facility]. Trigger finger surgery Oct 2020 History of carpal tunnel surgery of left wrist [facility] 03/2022 S/P cataract surgery R/L S/P colonoscopy S/P dilatation and curettage S/P knee surgery RIGHT SCOPE S/P spinal surgery l4 -5 S/P trigger finger release Past Anesthesia History No Hx of Anesthesia Complications and No Family Hx of Anesthesia Complications History of PONV No Hx of PONV and No Hx of Motion Sickness Social History Smoking Status: Former smoker Do You Dip or Chew Tobacco: No Hx Alcohol Use: Yes Alcohol type: wine alcohol intake frequency: 0-2 drinks per day Hx Substance Use: No substance use type: does not use Review of Systems denies fever/cough/ colds/ chest pain/ SOB/ EZRA denies EZRA Physical Exam Vital Signs Last Vital Signs Temp 36.6 C 05/03/23 17:29 Pulse 81 05/03/23 21:00 Resp 23 05/03/23 21:00 BP 137/78 05/03/23 21:00 Pulse Ox 92 05/03/23 21:00 O2 Del Method Room Air 05/03/23 21:00 ENMT Mouth: no TMJ abnormality and no dentition abnormality Thyromental Distance: > or= 3.5 Finger Breadths Mallampati Class: III Neck neck extension not limited Respiratory normal respiratory effort; no respiratory distress Auscultation: lungs clear to auscultation bilaterally Cardiovascular Rate/Rhythm: regular rate and regular rhythm Neurologic moves all extremities Psychiatric Orientation: alert and oriented x 3 Testing Laboratory Results 05/03/23 18:03 05/03/23 18:54 PT 10.9 Seconds (9.0-12.0) 05/03/23 18:54 INR 1.0 (0.9-1.1) 05/03/23 18:54 APTT 25.4 Seconds (21.0-31.0) 05/03/23 18:54 Urine Color Yellow 05/03/23 20: Urine Appearance Clear (Clear) 05/03/23 20: Urine pH 7.0 (4.5-7.5) 05/03/23 20: Ur Specific [place] 1.018 (1.000-1.030) 05/03/23 20: Urine Protein Negative (Negative) 05/03/23 20: Urine Glucose (UA) Negative (Negative) 05/03/23: Urine Ketones Negative (Negative) 05/03/23 20: Urine Nitrite Negative (Negative) 05/03/23 20: Ur Leukocyte Esterase 2+ (Negative) H 05/03/23 20:26 Urine WBC (Auto) 10-30 /hpf (0-5) H 05/03/23 20:26 Urine RBC (Auto) 0-4 /hpf (0-4) 05/03/23 20: U Hyaline Cast (Auto) 0 /lpf (0-5) 05/03/23 20: U Epithel Cells (Auto) 10-20 /lpf (0-5) H 05/03/23 20:26 Urine Bacteria (Auto) Negative (Negative) 05/03/23 20:
[2023-05-03] MEDS ORDERED: DEXAMETHASONE SOD INJ 4 MG/ML VIAL ONE ×2 (22:57)
[2023-05-03] MEDS ORDERED: ONDANSETRON INJ 2 MG/ML 2 ML VIAL ONE (22:57)
[2023-05-03] MEDS ORDERED: LIDOCAINE 1%/EPINEPHRINE 1:100,000 50 ML VIAL INJ ONE (22:58)
--- NOTE | 2023-05-03 23:23 | Post Operative Brief Note ---
Immediate Post Op Note v1 Date of Surgery May 03, 2023 Pre & Post Diagnosis Operation Date: 05/03/23 22:30 Pre-Op Diagnosis: LOWER RT ABDOMINAL PAIN Post-Op Diagnosis: LOWER RT ABDOMINAL PAIN I identified the patient and participated in the time-out.: Yes Procedure Operation Date: 05/03/23 22:30 Actual Procedures p Laparoscopic Appendectomy - Paulo Milner MD, FACS Surgeon Paulo Milner MD, FACS Outbound Sales Representative George Coello Estimated Blood Loss 5 Findings Consistent with Post-Op Diagnosis
--- NOTE | 2023-05-03 23:39 | Operative Report ---
PG Post Operative Report Pre & Post Diagnosis Operation Date: 05/03/23 22:30 Pre-Op Diagnosis: LOWER RT ABDOMINAL PAIN Post-Op Diagnosis: LOWER RT ABDOMINAL PAIN I identified the patient and participated in the time-out.: Yes Procedure Operation Date: 05/03/23 22:30 Actual Procedures p Laparoscopic Appendectomy - Paulo Milner MD, FACS The patient was brought into the operating theater supine position general endotracheal anesthesia the abdomen was prepped byline solution properly draped systemic biotics on board a timeout was had patient identified made a small incision supraumbilically sufficient to place a Veress needle followed by CO2 followed by 5 mm trocar point of entry specter no injury identified then visualized the cecum and inflammatory process was seen around that therefore on direct visualization a 5 mm right upper quadrant trocar was placed with preemptive local analgesic at this point we were able then to elevate the cecum and identified that inflammatory process most likely was all a reaction to the acute appendicitis that radiographically she had there was no evidence of any free fluid no evidence of any perforation at this point we converted the 5 mm umbilical port by enlarging the incision cutting down into the fascia and placing a 12 mm port the 5 mm we took was placed in left lower quadrant with preemptive local analgesic and direct visualization the camera was then placed left lower quadrant using the umbilical port and right upper quadrant were able to bluntly dissect out what appeared to be omental encasing around the base of the appendix the appendix itself was once elevated appeared ischemic but nonperforated it was quite tense and this started color appeared to be going all the way down to the base fortunately were able to easily create a window between the mesoappendix and the cecum once we created a window in the mesoappendix was able to place an purple ROCIO fired across the mesentery and hemostasis was excellent. Once we elevated the appendix we were able then to reload with a purple load and took off the appendix with part of the cecal area in the area that was free of any inflammatory changes. We inspected the staple line there was intact there was no bleeding the mesoappendix similarly had no evidence of any bleeding where we had resected it the appendix was placed in an Endopouch and taken out through the umbilical port we then irrigated the area placed the patient in reverse Trendelenburg position suctioned out copiously bleeding was excellent even though the patient has stated that then on Plavix every other day on direct visualization we took out the left lower quadrant trocar in the last the umbilical trocar and finally the right upper quadrant trocar fascial stitch 0 Vicryl [id number] x3 was used to close the umbilical fascia and 4-0 Monocryl subcuticular Steri-Strips applied procedure was tolerated well by the patient estimate blood loss approximately 5 cc Júnior Crouch physician child welfare assistant was present throughout the case and helped the retraction exposure wound closure Spoke with her in the surgical waiting area Surgeon Paulo Milner MD, FACS Balance Wheel Hand Filer George Coello Estimated Blood Loss 5 Findings Consistent with Post-Op Diagnosis Specimens Acute gangrenous appendicitis nonperforated Complications None Indications Acute appendicitis clinically significant right lower quadrant pain Description of Procedure merda I attest to the content of the Intraoperative Record and any orders documented therein. Any exceptions are noted below.
--- NOTE | 2023-05-03 23:55 | Anesthesiology Progress Note ---
Date of Service May 03, 2023 Anesthesia Post Procedure Vital Signs Vital Signs: Temp Pulse Pulse Resp BP BP Pulse Ox 05/03/23 19:50 69 05/03/23 21:00 81 23 137/78 92 05/03/23 20:30 75 20 127/74 92 05/03/23 20:00 73 19 141/73 H 05/03/23 19:51 69 18 05/03/23 19:32 76 16 139/72 94 05/03/23 17:40 76 18 94 05/03/23 17:40 79 18 144/79 H 94 05/03/23 17:29 36.6 C 82 20 155/87 H 93 O2 Del Method 05/03/23 19:50 05/03/23 21:00 Room Air 05/03/23 20:30 Room Air 05/03/23 20:00 05/03/23 19:51 05/03/23 19:32 05/03/23 17:40 Room Air 05/03/23 17:40 05/03/23 17:29 Room Air Pain Intensity Abdomen: Pain Intensity: 5 Transfer of Care Handoff Completed per policy Notes Mental Status: alert / awake / arousable and participated in evaluation Patient Amnestic to Procedure: Yes Nausea / Vomiting: adequately controlled Pain: adequately controlled Airway Patency, RR, SpO2: stable & adequate BP & HR: stable & adequate Hydration State: stable & adequate Anesthetic Complications: no major complications apparent and Pt Satisfied with anesthetic care
[2023-05-04] MEDS ORDERED: ATENOLOL 25 MG TABLET PO STA (00:57)
[2023-05-04] MEDS ORDERED: HYDROmorphone INJ 0.5 MG/0.5 ML SYR IV PRN (00:57)
[2023-05-04] MEDS: LACTATED RINGER'S 1,000 ML IV SCH ×2 (01:11→16:17)
--- NOTE | 2023-05-04 03:50 | Communication Note ---
Date of Service: May 04, 2023 I was called by nurse because patient was complaining of 9 out of 10 abdominal pain and noted that her abdomen feels firm compared to what she noted prior to surgery. Patient did receive 0.25 mg of intravenous Dilaudid at approximately 1:45 AM which was 2 hours ago. I visited with the patient at the bedside. Her vitals were reviewed and her blood pressure is 147/87 with a pulse of 69. Respirations are 20 nonlabored and her she is noted to be afebrile. Pulse ox 95% on 2 L. On exam the patient's abdomen is mildly distended but overall soft. Patient does have tenderness to palpation in a generalized fashion throughout her abdomen. The patient does report some generalized abdominal pain but has not had any nausea or vomiting. I provided reassurance with the patient. I do suspect she may have an element of an ileus as her appendix was significantly inflamed. I also discussed with the nurse. We will try some intravenous Tylenol to see if that helps with the patient's pain. I instructed nurse to notify me if this is ineffective in a reasonable amount of time at which time we can consider additional measures.
[2023-05-04] MEDS: CLINDAMYCIN/D5W 600 MG/50 ML BAG IV SCH ×3 (05:48→21:39)
[2023-05-04 06:18] LABS: Basophils # (auto) 0.01 K/uL (0-0.2); Basophils % (auto) 0.1 %; Hematocrit (blood only) 34.8 % (37.0-47.0); Hemoglobin 11.6 g/dl (12.0-16.0); Immature Granulocytes # (auto) 0.06 K/uL (0.01-0.20); Immature Granulocytes % (auto) 0.4 %; Lymphocytes # (auto) 0.49 K/uL (1.2-3.4); Lymphocytes % (auto) 3.3 %; Mean Corpuscular Hemoglobin 32.6 pg (25.0-34.0); Mean Corpuscular Hgb Conc 33.3 g/dL (32.0-36.0); Mean Corpuscular Volume 97.8 fL (80.0-100.0); Mean Platelet Volume 10.6 fL (9.4-12.4); Monocytes # (auto) 0.99 K/uL (0.11-0.59); Monocytes % (auto) 6.7 %; Neutrophils # (auto) 13.21 K/uL (1.40-6.50); Neutrophils % (auto) 89.5 %; Platelet Count 176 K/uL (130-400); RDW Coefficient of Variation 12.5 % (11.5-14.5); RDW Standard Deviation 44.9 fL (36.4-46.3); Red Blood Count 3.56 M/uL (4.20-5.40); White Blood Count 14.76 K/ul (4.8-10.8)
[2023-05-04 06:26] LABS: BUN Creatinine Ratio 21.9 (10-20); Calcium 8.8 mg/dl (8.6-10.3); Est GFR (African American) 96.3 ml/min; Est GFR (Non-African American) 83.1 ml/min; Potassium 4.6 mmol/L (3.5-5.1)
--- NOTE | 2023-05-04 07:22 | XRay Report ---
XR chest 1V portable CLINICAL HISTORY: Preoperative evaluation. COMPARISON STUDY: Chest CT September 25, 2022. FINDINGS: Lung volumes are normal. Linear left basilar opacity suggests atelectasis. There is no pneu mothorax or pleural effusion. Cardiac size is normal. Mediastinal contours are normal. There is no ev idence for pulmonary edema. IMPRESSION: No acute cardiopulmonary findings. ACT 112: Negative or not required by law. Electronically signed by: Bill Liu M.D. 05/04/2023 7:20 AM
--- NOTE | 2023-05-04 07:35 | Surgery Progress Note ---
Date of Service May 04, 2023 Assessment & Plan (1) Acute appendicitis: Plan: 05/04/23 less than 12 hours postop laparoscopic appendectomy for gangrenous appendicitis Operative findings were discussed with the patient This plan will advance her diet and if pain is under control and she is tolerating it she can be discharged We will send her home on [place] for 5 days Return to our office in 1 week Due to the patient's labs, imaging, and clinical presentation she will be admitted to the hospital proceeding as follows: We will hydrate her with IV fluids Analgesia will be provided Antiemetics will be provided N.p.o. status will be implemented We will administer antibiotics. I have discussed with the patient her numerous medication allergies. She says that she is allergic to penicillin and penicillin derivatives which cause hives and rash at times. I did question her if she is ever taken clindamycin and she believes she has never taken this medication and therefore cannot delineate if she has an allergic reaction of this. We will use clindamycin for preoperative antibiotics due to her noted allergies. We have scheduled the patient for an appendectomy with Dr. Milner this evening. As the patient had a piece of toast at approximately 4:30 PM this evening we have discussed with anesthesia and can proceed with her surgery at approximately 10:30 PM. Additional recommendations be forthcoming based on her operative findings and postoperative recovery We will use SCDs for DVT prevention, no chemical means due to planned surgery She will be a level 1 full code Admission and Anticipated Discharge Date Admission Date: May 03, 2023 Subjective Some abdominal discomfort as expected in less than 12 hours postop laparoscopic appendectomy She is complaining that she does not like the bed sticks to her gown Physical Exam Physical Exam: Alert coherent The abdomen softly distended as expected pain so soon postoperatively incisions dressing is intact Results & Data Vital Signs (Past 12 Hours) Vital Signs Temp Pulse Pulse Pulse Resp BP BP 05/04/23 07:29 55 L 05/04/23 00:57 72 05/04/23 00:47 05/04/23 04:50 36.5 C 64 20 114/71 05/04/23 03:36 36.3 C L 75 18 101/63 05/04/23 02:34 36.3 C L 69 20 147/84 H 05/04/23 02:02 36.3 C L 72 20 136/76 05/04/23 01:33 36.6 C 72 16 156/78 H 05/04/23 01:18 36.5 C 73 18 154/79 H 05/04/23 01:02 36.5 C 71 20 169/78 H 05/04/23 00:47 36.4 C L 70 20 163/82 H 05/04/23 00:30 73 12 161/82 H 05/04/23 00:20 66 19 164/80 H 05/04/23 00:15 36.7 C 67 174/84 H 05/04/23 00:00 68 18 174/82 H 05/03/23 23:50 36.6 C 75 18 171/86 H 05/03/23 23:45 36.7 C 74 18 140/88 05/04/23 00:30 36.6 C 93 H 18 161/82 H 05/04/23 00:25 36.7 C 74 20 05/03/23 23:38 36.6 C 72 20 161/79 H 05/04/23 00:15 36.7 C 67 18 174/84 H 05/04/23 00:02 36.7 C 75 20 182/86 H 05/03/23 19:50 69 05/03/23 21:00 81 23 137/78 05/03/23 20:30 75 20 127/74 05/03/23 20:00 73 19 141/73 H 05/03/23 19:51 69 18 05/03/23 19:32 76 16 139/72 Pulse Ox O2 Del Method O2 Flow Rate 05/04/23 07:29 05/04/23 00:57 05/04/23 00:47 Nasal Cannula 2 05/04/23 04:50 97 Nasal Cannula 2 05/04/23 03:36 97 Nasal Cannula 2 05/04/23 02:34 95 Nasal Cannula 2 05/04/23 02:02 94 Nasal Cannula 2 05/04/23 01:33 96 Nasal Cannula 2 05/04/23 01:18 96 Nasal Cannula 2 05/04/23 01:02 97 Nasal Cannula 2 05/04/23 00:47 94 Nasal Cannula 2 05/04/23 00:30 94 Nasal Cannula 2 05/04/23 00:20 96 Nasal Cannula 2 05/04/23 00:15 97 Nasal Cannula 2 05/04/23 00:00 94 Nasal Cannula 2 05/03/23 23:50 96 Nasal Cannula 2 05/03/23 23:45 98 Nasal Cannula 2 05/04/23 00:30 97 Nasal Cannula 2 05/04/23 00:25 98 Nasal Cannula 2 05/03/23 23:38 96 Nasal Cannula 2 05/04/23 00:15 93 Room Air 05/04/23 00:02 92 Nasal Cannula 2 05/03/23 19:50 05/03/23 21:00 92 Room Air 05/03/23 20:30 92 Room Air 05/03/23 20:00 05/03/23 19:51 05/03/23 19:32 94 (1) Acute appendicitis Acute appendicitis type: with localized peritonitis Appendicitis abscess presence: without abscess Appendicitis gangrene presence: without gangrene Appendicitis perforation presence: without perforation Qualified Code(s): K35.30 - Acute appendicitis with localized peritonitis, without perforation or gangrene
[2023-05-04] MEDS ORDERED: HYDROCODONE/ACETAMOPHEN 5/325MG TAB PO PRN ×2 (14:54→15:57)
[2023-05-04] MEDS ORDERED: IBUPROFEN 600 MG TAB PO PRN (15:55)
[2023-05-04] MEDS ORDERED: SIMETHICONE 80 MG CHEW PO PRN (16:03)
--- NOTE | 2023-05-04 16:14 | Surgery Progress Note ---
Date of Service May 04, 2023 Assessment & Plan (1) S/P laparoscopic appendectomy: Plan: Checked on patient at the bedside She is very anxious and has some mild distention-she may have a very mild ileus We will hold her discharge, continue her liquids as tolerated I encouraged her to walk in the hallway We will try to work with her regarding her analgesics-she does not seem to tolerate much I think she is more calm now that she knows she does not have to go home Admission and Anticipated Discharge Date Admission Date: May 03, 2023 Results & Data Vital Signs (Past 12 Hours) Vital Signs Temp Pulse Pulse Pulse Resp BP BP 05/04/23 15:22 37.1 C 71 16 132/60 05/04/23 14:54 83 05/04/23 12:53 36.5 C 72 66 18 104/62 05/04/23 11:16 36.5 C 66 18 104/62 05/04/23 08:46 05/04/23 07:39 05/04/23 07:22 36.7 C 61 18 108/61 05/04/23 07:29 55 L 05/04/23 04:50 36.5 C 64 20 114/71 Pulse Ox O2 Del Method O2 Flow Rate 05/04/23 15:22 92 Room Air 05/04/23 14:54 05/04/23 12:53 94 05/04/23 11:16 94 Room Air 05/04/23 08:46 97 Room Air, Nasal Cannula 2 05/04/23 07:39 Nasal Cannula 2 05/04/23 07:22 97 Nasal Cannula 2 05/04/23 07:29 05/04/23 04:50 97 Nasal Cannula 2 PG Care Time/CCT Total # of Minutes Spent Total Time Spent with Patient: Total time spent is greater than 50% in coordination of care (as documented) at patient's floor/unit and/or counseling patient: Coding Level of Care Code 66359 Post Operative Follow-Up Diagnoses S/P laparoscopic appendectomy Z90.49
[2023-05-05] MEDS: LACTATED RINGER'S 1,000 ML IV SCH (02:15)
[2023-05-05] MEDS: CLINDAMYCIN/D5W 600 MG/50 ML BAG IV SCH (05:23)
--- NOTE | 2023-05-05 06:49 | Surgery Progress Note ---
Date of Service May 05, 2023 Assessment & Plan (1) S/P laparoscopic appendectomy: Plan: 05/05/23 POD#1 status post laparoscopic appendectomy patient doing well plan to discharge her today instructions we have gone over with her yesterday Discharge order placed yesterday Admission and Anticipated Discharge Date Admission Date: May 03, 2023 Subjective She feels better this morning after I saw her yesterday morning apparently she was anxious to go home and was kept over to the day Denies any abdominal discomfort the abdomen is less distended Physical Exam Physical Exam: Alert coherent without any acute issues Abdomen softer expected discomfort postoperatively Results & Data Vital Signs (Past 12 Hours) Vital Signs Temp Pulse Resp BP Pulse Ox O2 Del Method 05/05/23 03:48 36.6 C 70 18 116/70 93 Room Air 05/04/23 23:00 37.2 C 75 20 149/80 H 94 Room Air 05/04/23 19:41 37.0 C 70 20 114/70 91 Room Air 05/04/23 19:40 Room Air
--- NOTE | 2023-05-05 08:23 | Electrocardiogram Report ---
Test Reason : Blood Pressure : / mmHG Vent. Rate : 074 BPM Atrial Rate : 074 BPM P-R Int : 154 ms QRS Dur : 076 ms QT Int : 382 ms P-R-T Axes : 019 000 024 degrees QTc Int : 424 ms Normal sinus rhythm Possible Left atrial enlargement Septal infarct , age undetermined Inferior infarct , age undetermined Abnormal ECG When compared with ECG of 11-SEP-2009 12:19, Inferior infarct is now Present Confirmed by Ham Carrington ([id number]) on 05/05/2023 8:23:02 AM Referred By: REFERRED SELF Confirmed By:Ham Carrington
--- NOTE | 2023-05-06 19:26 | Discharge Summary ---
Date of Service May 06, 2023 Admission HPI Per Admitting Provider This is an 82-year-old female who presented to the emergency department secondary to abdominal pain. The patient notes that her abdominal pain began in a generalized fashion on 05/02/2023. The pain is subsequent shifted to the right lower quadrant. She has been running low-grade fevers as high as 99.8 at home. She has had nausea without vomiting. She denies any prior abdominal surgeries. Concerning the patient's pain she does not note any modifying factors. Her most recent oral intake was at approximately 4:30 PM on 05/03/2023 at which time she had a piece of toast. Patient says that she leads a very active lifestyle doing a cardiovascular workout several times per week. She does not get any chest pain or shortness of breath when she performs these activities. 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 She says that she believes she took her Plavix yesterday morning. With her TIA she did have loss of speech but she has made a full recovery and has not had any recurrence of these problems. Since arrival to the hospital the patient has had labs and imaging which I independent reviewed. Chest x-ray did not show any evidence of pneumonia. A CT scan of the abdomen pelvis showed the patient had a 5 mm appendicolith at the base of the appendix with a fluid-filled and dilated appendix with moderate periappendiceal inflammation consistent with an acute appendicitis. There is no evidence of free air or abscess. Labs include a CBC her white blood cell count was 12.3. Hemoglobin, hematocrit, platelet count were normal. Coagulation s tudies were normal. Chemistry profile showed sodium, potassium, BUN, and creatinine were normal. There is no elevation of LFTs or lipase. A COVID test was negative. An EKG showed sinus rhythm without changes indicative of acute ischemia At the time of my interview the patient was resting comfortably in bed and she was in no distress. Discharge Data Consultations 05/03/23 19:58 Consult General Surgery Stat 05/03/23 20:26 ED Decision to Admit Stat Procedures Performed Operation Date: 05/03/23 22:30 Actual Procedures p Laparoscopic Appendectomy - Paulo Milner MD, FACS Hospital Course (1) Acute appendicitis: Date of admission: 05/03/2023 Date of discharge: 05/05/2023 This is an 83-year-old female who presented to [facility] on date of admission secondary to abdominal pain. The patient's imaging was consistent with acute appendicitis. Because of this she was admitted to the hospital and patient was taken to the operating room on 05/03/[address] Dinh daily where he performed a laparoscopic appendectomy. The procedure was without complications. During her postoperative course patient had some minor issues with postoperative pain and she was monitored in the hospital. She was ultimately able to be discharged home on postop day #2 which was 05/05/2023 after an uncomplicated hospital course. She was instructed on appropriate wound care, diet, and activity. She was instructed to follow-up Dr. Milner in the clinic in 1 to 2 weeks. Coding Level of Care Code 61085 IN/OBS DISCH 30 MIN/LESS Diagnoses Acute appendicitis K35.30 Acute appendicitis type: with localized peritonitis Appendicitis abscess presence: without abscess Appendicitis gangrene presence: without gangrene Appendicitis perforation presence: without perforation
== END 2023-05-05 09:21 | disposition home or self-care (01) | DRG 343 ==
LOC: ED 17:28 → OR 22:14 → 2N 22:14 → INTOOBSV 23:35 → 2N 23:35

== ENCOUNTER 2023-05-07 22:29 | Inpatient (IN) ==
[2023-05-07] MEDS ORDERED: ACETAMINOPHEN 1,000 MG/100 ML VIAL IV STA (22:54)
[2023-05-07] MEDS ORDERED: SODIUM CHLORIDE 0.9% 1000ML 1,000 ML IV ONE (23:00)
[2023-05-07] MEDS ORDERED: SODIUM CHLORIDE 0.9% 1000ML 500 ML IV SCH (23:00)
[2023-05-07] MEDS ORDERED: SODIUM CHLORIDE 0.9% 1000ML 250 ML IV ONE (23:00)
[2023-05-07] MEDS ORDERED: MEROPENEM 2,000 MG in 0.9 % SODIUM CHLORIDE 60 ML IV STA (23:01)
--- NOTE | 2023-05-07 23:07 | Emergency Department Note ---
History of Present Illness General Chief complaint: Fever Stated complaint: SURGERY THURSDAY,PAIN,FEVER Time Seen by Provider: 05/07/23 22:44 History of Present Illness Maximum Pain Intensity: 9 This 83-year-old female presents to the ER complaining abdominal pain and fever for the past day when appendectomy on Thursday by Dr. Milner. Patient called surgery was advised to come to the ER. I did contact surgery when the patient arrived. Patient denies chest pain, dyspnea, cough, urinary symptoms. No bowel movement since surgery. Patient is on clindamycin and took a Motrin earlier tonight and a Vicodin. Home Medications Medication Instructions Recorded Confirmed Type calcium carbonate 600 mg-vitamin 1 cap PO QAM 07/25/19 05/07/23 History D3 10 mcg (400 unit) capsule multivitamin 1 tab PO QAM 01/23/20 05/07/23 History magnesium carb,citrate,oxide 300 mg PO Q2D 12/17/21 05/07/23 History (Magnesium Complex) mecobalamin (vitamin B12) 1,000 1,000 mcg PO QAM 09/29/22 05/07/23 History mcg chewable tablet atenolol 25 mg tablet 25 mg PO HS #90 tabs 10/15/22 05/07/23 Rx buspirone 5 mg tablet 5 mg PO BID PRN anxiety #30 tabs 01/07/23 05/07/23 Rx cholecalciferol (vitamin D3) 25 11,000 unit PO QAM 01/07/23 05/07/23 History mcg (1,000 unit) tablet (Vitamin D3) clopidogrel 75 mg tablet 75 mg PO Q2D 01/07/23 05/07/23 History ezetimibe 10 mg tablet 10 mg PO QAM 01/07/23 05/07/23 History levothyroxine 112 mcg tablet 112 mcg PO QAM #90 tabs 01/07/23 05/07/23 Rx cyclobenzaprine 5 mg tablet 5 mg PO TID PRN muscle pain #30 02/10/23 05/07/23 Rx tabs clindamycin HCl 300 mg capsule 300 mg PO BID 5 days #10 caps 05/04/23 05/07/23 Rx (Cleocin HCl) ibuprofen 200 mg capsule 200 mg PO Q6H PRN pain #10 caps 05/07/23 05/07/23 Rx polyethylene glycol 3350 17 17 g PO DAILY #119 grams 05/07/23 05/07/23 Rx gram/dose oral powder (Miralax) Allergies Allergy/AdvReac Type Severity Reaction Status Date / Time cephalexin Allergy Intermediate hives Verified 04/16/23 08:36 levofloxacin Allergy Intermediate RASH Verified 04/16/23 08:36 cantaloupe Allergy Mild ITCHY Verified 04/16/23 08:36 MOUTH WITH MELONS/CANTALOPE,WATERMELON,CANTALOPE cat dander Allergy Mild itchy eye Verified 04/16/23 08:36 and sneeze melon Allergy Mild ITCHY Verified 04/16/23 08:36 MOUTH WITH MELONS/CANTALOPE,WATERMELON,CANTALOPE tramadol Allergy Mild ITCHING Verified 04/16/23 08:36 vaccine adjuvant system, Allergy Mild Unresponsiv Verified 04/16/23 08:36 [id number] liposomal e [From Shingrix (PF)] varicella-zoster virus Allergy Mild Unknown Verified 04/16/23 08:36 glycoprotein E, recombinant [From Shingrix (PF)] amoxicillin Allergy Unknown itching Verified 04/16/23 08:36 hazelnut Allergy Unknown ITCHY MOUTH Verified 04/16/23 08:36 oxycodone Allergy Unknown Unknown Verified 04/16/23 08:36 squash Allergy Unknown GI SYMPTOMS Verified 04/16/23 08:36 zoster vaccine live Allergy Unknown rash, Verified 04/16/23 08:36 swelling crab AdvReac Unknown stomach Verified 04/16/23 08:36 ache Past Med/Surg History Medical History Asthma NO REGULAR USE OF INHALERS Carpal tunnel syndrome, bilateral Chronic constipation Confusion mild confusion - seen Dr Delaney in 11/30 Drug allergy Expressive aphasia ?TIA? 2016-PLACED ON PLAVIX-NO ISSUES SINCE PER PT-F/U DR DELANEY Hx of seasonal allergies Hyperlipidemia Hypothyroidism Idiopathic progressive polyneuropathy Migraine VISUAL DISTURBANCE-NO HEADACHE-F/U DR DELANEY Mild obstructive sleep apnea does not use device Neck muscle spasm Osteopenia Paroxysmal SVT (supraventricular tachycardia) pt denies Premature ventricular contractions takes atenolol; f/[facility] [place] Pulmonary nodule follow with [facility] Rosacea Sleep disturbances Surgical History H/O hand surgery [facility]. Trigger finger surgery Oct 2020 History of carpal tunnel surgery of left wrist [facility] 03/2022 History of laparoscopic appendectomy (05/03/23) Laparoscopic Appendectomy - Paulo Milner MD, FACS S/P cataract surgery R/L S/P colonoscopy S/P dilatation and curettage S/P knee surgery RIGHT SCOPE S/P spinal surgery l4 -5 S/P trigger finger release Family History Mother Family history of diabetes mellitus Pure hypercholesterolemia Hypertension Glaucoma Stroke syndrome Diabetes Stroke Father Stroke syndrome Myocardial infarction Heart disease Other No family history of allergies No family history of bleeding disorder Denies family history of Ovarian cancer Prostate cancer Hearing loss Breast cancer Colorectal cancer Cancer Asthma Social History Smoking Status: Former smoker Tobacco Type: Cigarettes packs per day: 1; Second Hand Exposure: Yes (hx growing up); Do You Dip or Chew Tobacco: No; Hx Alcohol Use: Yes Alcohol type: wine Alcohol Intake Frequency Comment: 2 glasses of wine per day Hx Substance Use: No Preferred Language: Armenian Communication Ability: Effective Visual Impairment: No Limitations Hearing Ability: Normal 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 Beliefs That Will Affect Care: None marital status: Current Living Situation: Spouse current occupational status: retired How many Children do You have: 4 Feels Safe at Home: Yes Childhood Exposure to Second-Hand Smoke: Yes Dental Care, Regularly: Yes Physical Activity Frequency: Daily Seatbelt Use: always Sunscreen Use: Yes Assistive Devices: None Review of Systems A total of 10 systems reviewed and were otherwise negative Physical Exam Vital Signs Vital Signs - 24 hr 05/07/23 22:30 05/07/23 23:10 05/08/23 00:00 Temperature 39.4 C H Temperature Source Oral Pulse Rate 107 H 93 H 79 Respiratory Rate 19 22 Blood Pressure 138/69 Blood Pressure Mean 92 Pulse Oximetry 91 94 Oxygen Delivery Method Room Air Oxygen Flow Rate Sepsis Recent Fever Within 48 Hours Yes Sepsis New/Unexplained Change in Mental Status N/A Sepsis Action Taken by Nursing No Action Required 05/08/23 01:17 05/08/23 01:00 Temperature Temperature Source Pulse Rate 78 Respiratory Rate 22 Blood Pressure 113/62 Blood Pressure Mean 84 Pulse Oximetry 94 95 Oxygen Delivery Method Nasal Cannula Oxygen Flow Rate 2 Sepsis Recent Fever Within 48 Hours Sepsis New/Unexplained Change in Mental Status Sepsis Action Taken by Nursing VITALS: Vitals are noted on the nurse's note and reviewed by myself. Vital signs febrile and tachycardic. GENERAL: White female ill-appearing who appears in pain SKIN: The skin was without rashes, erythema, edema, or bruising. There is no tenting of the skin. Capillary reflex less than 2 seconds. HEAD: Normocephalic atraumatic. EARS: External auditory canals clear, EYES: Pupils equal round and reactive to light and accommodation. Conjunctivae without injection, sclerae without icterus. Extraocular movements intact. NOSE: Patent, turbinates without inflammation or discharge. MOUTH: Mucous membranes moist. Pharynx without erythema or exudate. Uvula midline. Airway patent. Tongue does not deviate. NECK: Supple without nuchal rigidity. No lymphadenopathy. No thyromegaly. Cervical spine is nontender. No JVD. HEART: Regular rate and rhythm LUNGS: Clear to auscultation bilaterally without wheezes, rales or rhonchi. No retractions or accessory muscle use. ABDOMEN: Positive bowel sounds x 4. Normal tympanic percussion. Soft, tender lower abdomen, without masses or organomegaly. Worthington sign negative. No guarding or rebound tenderness. No CVA tenderness MUSCULOSKELETAL: No muscle atrophy, erythema, or edema noted. NEURO: Patient was alert and oriented to person place and time. Normal sensation to light and sharp touch. No focal neurological deficits. Course Administered Medications Magnesium Sulfate/Dextrose (Magnesium Sulfate / D5w) 1 gm in 100 mls @ 100 mls/hr IV Q1H [facility] Stop: 05/08/23 01:53 Last Admin: 05/08/23 00:39 Dose: 100 mls/hr Documented By: RASHIDA Discontinued Medications Acetaminophen (Ofirmev) 1,000 mg in 100 mls @ 400 mls/hr IV NOW STA Stop: 05/07/23 23:08 Last Infusion: 05/08/23 00:23 Dose: 0 mls/hr Documented By: Admin: 05/07/23 23:20 Dose: 400 mls/hr Documented By: RASHIDA Sodium Chloride (Nss 1000ml) 500 mls @ 999 mls/hr IV .Q31M SAL Stop: 05/07/23 23:30 Last Infusion: 05/08/23 00:33 Dose: 0 mls/hr Documented By: Admin: 05/07/23 23:56 Dose: 999 mls/hr Documented By: RASHIDA Sodium Chloride (Nss 1000ml) 1,000 mls @ 999 mls/hr IV .Q1H1M ONE Stop: 05/08/23 00:00 Last Infusion: 05/08/23 00:23 Dose: 0 mls/hr Documented By: Admin: 05/07/23 23:20 Dose: 999 mls/hr Documented By: RASHIDA Sodium Chloride (Nss 1000ml) 250 mls @ 999 mls/hr IV .Q16M ONE Stop: 05/07/23 23:15 Last Infusion: 05/08/23 00:24 Dose: 0 mls/hr Documented By: Admin: 05/07/23 23:55 Dose: 999 mls/hr Documented By: RASHIDA Meropenem 2,000 mg/ Sodium (Chloride) 100 mls @ 200 mls/hr IV NOW STA; Protocol Stop: 05/07/23 23:30 Last Infusion: 05/08/23 00:33 Dose: 0 mls/hr Documented By: Admin: 05/07/23 23:55 Dose: 200 mls/hr Documented By: RASHIDA Ioversol (Optiray 320 100ml) 100 ml IV ONCE ONE Stop: 05/07/23 23:49 Last Admin: 05/07/23 23:48 Dose: 93 ml Documented By: MIRIAN Medical Decision Making Medical Records Attestation: I reviewed the patient's medical records. Home Medications Current Medication List: was personally reviewed by me Laboratory Data Attestation: I reviewed the patient's lab results. 05/07/23 11:10 05/07/23 11:10 Lab Results 05/07/23 05/07/23 05/07/23 Range/Units 11:10 11:10 11:10 WBC 9.32 (4.8-10.8) K/ul RBC 3.36 L (4.20-5.40) M/uL Hgb 11.1 L (12.0-16.0) g/dl POC Hgb (12.0-16.0) g/dl Hct 32.6 L (37.0-47.0) % POC Hct (37-47) % MCV 97.0 (80.0-100.0) fL MCH 33.0 (25.0-34.0) pg MCHC 34.0 (32.0-36.0) g/dL RDW Std Deviation 44.9 (36.4-46.3) fL RDW Coeff of Marielos 12.6 (11.5-14.5) % Plt Count 212 (130-400) K/uL MPV 10.6 (9.4-12.4) fL Immature Gran % (Auto) 0.5 % Neut % (Auto) 82.4 % Lymph % (Auto) 8.0 % Burke % (Auto) 7.6 % Eos % (Auto) 1.2 % Baso % (Auto) 0.3 % Neut # (Auto) 7.67 H (1.40-6.50) K/uL Lymph # (Auto) 0.75 L (1.2-3.4) K/uL Burke # (Auto) 0.71 H (0.11-0.59) K/uL Eos # (Auto) 0.11 (0-0.50) K/uL Baso # (Auto) 0.03 (0-0.2) K/uL Immature Gran # (Auto) 0.05 (0.01-0.20) K/uL POC Sodium (135-144) mmol/L Sodium 136 (136-145) mmol/L POC Potassium (3.3-5.0) mmol/L Potassium 4.1 (3.5-5.1) mmol/L POC Chloride (101-112) mmol/L Chloride 99 (98-107) mmol/L Carbon Dioxide 29 (21-32) mmol/L POC Total CO2 (24-31) mmol/L Anion Gap 8 (3-11) POC Anion Gap (16-25) mmol/L POC BUN (7-18) mg/dl BUN 15 (6-23) mg/dl Creatinine 0.69 (0.6-1.2) mg/dl POC Creatinine (0.6-1.3) mg/dl Est Cr Clr Drug Dosing 62.3 ml/min Est GFR ( Amer) 94.0 ml/min Est GFR (Non-Af Amer) 81.1 ml/min BUN/Creatinine Ratio 21.7 H (10-20) Glucose 168 H (70-99(Fasting)) mg/dl POC Glucose (other) (70-99) mg/dl Lactate 1.6 (0.4-2.0) mmol/L Calcium 10.0 (8.6-10.3) mg/dl POC Ioniz Calcium Siri (1.12-1.32) mmol/l Magnesium 1.6 L (1.7-2.4) mg/dl Total Bilirubin 0.8 (0.2-1.0) mg/dl Direct Bilirubin 0.2 (0-0.2) mg/dl AST 22 (13-39) U/L ALT 18 (7-52) U/L Alkaline Phosphatase 65 (34-104) U/L Troponin I High Sens 7.3 (0-14) pg/ml Total Protein 6.9 (6.0-8.3) gm/dl Albumin 3.7 (3.4-5.0) gm/dl Procalcitonin (0-0.5) ng/ml Urine Color Urine Appearance (Clear) Urine pH (4.5-7.5) Ur Specific Courtland (1.000-1.030) Urine Protein (Negative) Urine Glucose (UA) (Negative) Urine Ketones (Negative) Urine Blood (Negative) Urine Nitrite (Negative) Urine Bilirubin (Negative) Urine Urobilinogen (Negative) Ur Leukocyte Esterase (Negative) Urine WBC (Auto) (0-5) /hpf Urine RBC (Auto) (0-4) /hpf U Hyaline Cast (Auto) (0-5) /lpf U Epithel Cells (Auto) (0-5) /lpf Urine Bacteria (Auto) (Negative) Adenovirus (PCR) (NotDetected) B. pertussis DNA (PCR) (NotDetected) B.parapertussis DNA PCR (NotDetected) C. pneumoniae DNA (PCR) (NotDetected) Coronavirus OC43 (PCR) (NotDetected) Coronavirus HKU1 (PCR) (NotDetected) Coronavirus 229E (PCR) (NotDetected) SARS-CoV-2 (PCR) (NotDetected) Coronavirus NL63 (PCR) (NotDetected) Human Metapneumovir PCR (NotDetected) Influenza Type A (PCR) (NotDetected) Influenza Type B (PCR) (NotDetected) M. pneumoniae (PCR) (NotDetected) Parainfluenza 1 (PCR) (NotDetected) Parainfluenza 2 (PCR) (NotDetected) Parainfluenza 3 (PCR) (NotDetected) Parainfluenza 4 (PCR) (NotDetected) RSV (PCR) (NotDetected) Entero/Rhino (PCR) (NotDetected) 05/07/23 05/07/23 05/07/23 Range/Units 11:10 23:15 Unknown WBC (4.8-10.8) K/ul RBC (4.20-5.40) M/uL Hgb (12.0-16.0) g/dl POC Hgb 11.6 L (12.0-16.0) g/dl Hct (37.0-47.0) % POC Hct 34 L (37-47) % MCV (80.0-100.0) fL MCH (25.0-34.0) pg MCHC (32.0-36.0) g/dL RDW Std Deviation (36.4-46.3) fL RDW Coeff of Marielos (11.5-14.5) % Plt Count (130-400) K/uL MPV (9.4-12.4) fL Immature Gran % (Auto) % Neut % (Auto) % Lymph % (Auto) % Burke % (Auto) % Eos % (Auto) % Baso % (Auto) % Neut # (Auto) (1.40-6.50) K/uL Lymph # (Auto) (1.2-3.4) K/uL Burke # (Auto) (0.11-0.59) K/uL Eos # (Auto) (0-0.50) K/uL Baso # (Auto) (0-0.2) K/uL Immature Gran # (Auto) (0.01-0.20) K/uL POC Sodium 137 (135-144) mmol/L Sodium (136-145) mmol/L POC Potassium 4.1 (3.3-5.0) mmol/L Potassium (3.5-5.1) mmol/L POC Chloride 98 L (101-112) mmol/L Chloride (98-107) mmol/L Carbon Dioxide (21-32) mmol/L POC Total CO2 27 (24-31) mmol/L Anion Gap (3-11) POC Anion Gap 16.0 (16-25) mmol/L POC BUN 14 (7-18) mg/dl BUN (6-23) mg/dl Creatinine (0.6-1.2) mg/dl POC Creatinine 0.6 (0.6-1.3) mg/dl Est Cr Clr Drug Dosing ml/min Est GFR ( Amer) ml/min Est GFR (Non-Af Amer) ml/min BUN/Creatinine Ratio (10-20) Glucose (70-99(Fasting)) mg/dl POC Glucose (other) 177 H (70-99) mg/dl Lactate (0.4-2.0) mmol/L Calcium (8.6-10.3) mg/dl POC Ioniz Calcium Siri 1.31 (1.12-1.32) mmol/l Magnesium (1.7-2.4) mg/dl Total Bilirubin (0.2-1.0) mg/dl Direct Bilirubin (0-0.2) mg/dl AST (13-39) U/L ALT (7-52) U/L Alkaline Phosphatase (34-104) U/L Troponin I High Sens (0-14) pg/ml Total Protein (6.0-8.3) gm/dl Albumin (3.4-5.0) gm/dl Procalcitonin 0.08 (0-0.5) ng/ml Urine Color Yellow Urine Appearance Cloudy A (Clear) Urine pH 8.5 H (4.5-7.5) Ur Specific Courtland 1.016 (1.000-1.030) Urine Protein Negative (Negative) Urine Glucose (UA) Negative (Negative) Urine Ketones Negative (Negative) Urine Blood Negative (Negative) Urine Nitrite Negative (Negative) Urine Bilirubin Negative (Negative) Urine Urobilinogen Negative (Negative) Ur Leukocyte Esterase Negative (Negative) Urine WBC (Auto) 1-5 (0-5) /hpf Urine RBC (Auto) 0-4 (0-4) /hpf U Hyaline Cast (Auto) 1-5 (0-5) /lpf U Epithel Cells (Auto) 10-20 H (0-5) /lpf Urine Bacteria (Auto) Negative (Negative) Adenovirus (PCR) (NotDetected) B. pertussis DNA (PCR) (NotDetected) B.parapertussis DNA PCR (NotDetected) C. pneumoniae DNA (PCR) (NotDetected) Coronavirus OC43 (PCR) (NotDetected) Coronavirus HKU1 (PCR) (NotDetected) Coronavirus 229E (PCR) (NotDetected) SARS-CoV-2 (PCR) (NotDetected) Coronavirus NL63 (PCR) (NotDetected) Human Metapneumovir PCR (NotDetected) Influenza Type A (PCR) (NotDetected) Influenza Type B (PCR) (NotDetected) M. pneumoniae (PCR) (NotDetected) Parainfluenza 1 (PCR) (NotDetected) Parainfluenza 2 (PCR) (NotDetected) Parainfluenza 3 (PCR) (NotDetected) Parainfluenza 4 (PCR) (NotDetected) RSV (PCR) (NotDetected) Entero/Rhino (PCR) (NotDetected) 05/08/23 Range/Units 00:12 WBC (4.8-10.8) K/ul RBC (4.20-5.40) M/uL Hgb (12.0-16.0) g/dl POC Hgb (12.0-16.0) g/dl Hct (37.0-47.0) % POC Hct (37-47) % MCV (80.0-100.0) fL MCH (25.0-34.0) pg MCHC (32.0-36.0) g/dL RDW Std Deviation (36.4-46.3) fL RDW Coeff of Marielos (11.5-14.5) % Plt Count (130-400) K/uL MPV (9.4-12.4) fL Immature Gran % (Auto) % Neut % (Auto) % Lymph % (Auto) % Burke % (Auto) % Eos % (Auto) % Baso % (Auto) % Neut # (Auto) (1.40-6.50) K/uL Lymph # (Auto) (1.2-3.4) K/uL Burke # (Auto) (0.11-0.59) K/uL Eos # (Auto) (0-0.50) K/uL Baso # (Auto) (0-0.2) K/uL Immature Gran # (Auto) (0.01-0.20) K/uL POC Sodium (135-144) mmol/L Sodium (136-145) mmol/L POC Potassium (3.3-5.0) mmol/L Potassium (3.5-5.1) mmol/L POC Chloride (101-112) mmol/L Chloride (98-107) mmol/L Carbon Dioxide (21-32) mmol/L POC Total CO2 (24-31) mmol/L Anion Gap (3-11) POC Anion Gap (16-25) mmol/L POC BUN (7-18) mg/dl BUN (6-23) mg/dl Creatinine (0.6-1.2) mg/dl POC Creatinine (0.6-1.3) mg/dl Est Cr Clr Drug Dosing ml/min Est GFR ( Amer) ml/min Est GFR (Non-Af Amer) ml/min BUN/Creatinine Ratio (10-20) Glucose (70-99(Fasting)) mg/dl POC Glucose (other) (70-99) mg/dl Lactate (0.4-2.0) mmol/L Calcium (8.6-10.3) mg/dl POC Ioniz Calcium Siri (1.12-1.32) mmol/l Magnesium (1.7-2.4) mg/dl Total Bilirubin (0.2-1.0) mg/dl Direct Bilirubin (0-0.2) mg/dl AST (13-39) U/L ALT (7-52) U/L Alkaline Phosphatase (34-104) U/L Troponin I High Sens (0-14) pg/ml Total Protein (6.0-8.3) gm/dl Albumin (3.4-5.0) gm/dl Procalcitonin (0-0.5) ng/ml Urine Color Urine Appearance (Clear) Urine pH (4.5-7.5) Ur Specific [place] (1.000-1.030) Urine Protein (Negative) Urine Glucose (UA) (Negative) Urine Ketones (Negative) Urine Blood (Negative) Urine Nitrite (Negative) Urine Bilirubin (Negative) Urine Urobilinogen (Negative) Ur Leukocyte Esterase (Negative) Urine WBC (Auto) (0-5) /hpf Urine RBC (Auto) (0-4) /hpf U Hyaline Cast (Auto) (0-5) /lpf U Epithel Cells (Auto) (0-5) /lpf Urine Bacteria (Auto) (Negative) Adenovirus (PCR) Not Detected (NotDetected) B. pertussis DNA (PCR) Not Detected (NotDetected) B.parapertussis DNA PCR Not Detected (NotDetected) C. pneumoniae DNA (PCR) Not Detected (NotDetected) Coronavirus OC43 (PCR) Not Detected (NotDetected) Coronavirus HKU1 (PCR) Not Detected (NotDetected) Coronavirus 229E (PCR) Not Detected (NotDetected) SARS-CoV-2 (PCR) Not Detected (NotDetected) Coronavirus NL63 (PCR) Not Detected (NotDetected) Human Metapneumovir PCR Not Detected (NotDetected) Influenza Type A (PCR) Not Detected (NotDetected) Influenza Type B (PCR) Not Detected (NotDetected) M. pneumoniae (PCR) Not Detected (NotDetected) Parainfluenza 1 (PCR) Not Detected (NotDetected) Parainfluenza 2 (PCR) Not Detected (NotDetected) Parainfluenza 3 (PCR) Not Detected (NotDetected) Parainfluenza 4 (PCR) Not Detected (NotDetected) RSV (PCR) Not Detected (NotDetected) Entero/Rhino (PCR) Not Detected (NotDetected) Imaging Data Attestation: I personally reviewed and interpreted this imaging study as follows: Radiologist's Impression: Abdomen/Pelvis CT 05/07/23 22:55 Exam(s): CT ABDOMEN + PELVIS With Contrast IV Amt: 93 ML OPTIRAY 320 EXAM: CT Abdomen and Pelvis With Intravenous Contrast CLINICAL HISTORY: Reason for exam: pain/fever, recent appy. TECHNIQUE: Axial computed tomography images of the abdomen and pelvis with intravenous contrast. CTDI is 23.03 mGy and DLP is 1112.33 mGy-cm. Automated exposure control was utilized for the study. A dose lowering technique was utilized adhering to the principles of ALARA. CONTRAST: Patient received 93 ML OPTIRAY 320 of IV contrast COMPARISON: No relevant prior studies available. FINDINGS: Lung bases: Unremarkable. No mass. No consolidation. ABDOMEN: Liver: Hepatic steatosis. Gallbladder and bile ducts: Contracted gallbladder. No calcified stones. No ductal dilation. Pancreas: Unremarkable. No mass. No ductal dilation. Spleen: Unremarkable. No splenomegaly. Adrenals: Unremarkable. No mass. Kidneys and ureters: Unremarkable. No hydronephrosis or delayed nephrogram. Stomach and bowel: Prominent small bowel measuring up to 2.6 cm with mild wall thickening. Correlate for enteritis/ileus. Mild-moderate fecal retention, correlate for constipation. No obstruction. PELVIS: Appendix: Appendectomy. No postoperative abscess or fluid collection. Bladder: Decompression of bladder. Reproductive: Unremarkable as visualized. ABDOMEN and PELVIS: Intraperitoneal space: Unremarkable. No significant fluid collection. No free intraperitoneal air. Bones/joints: Laminectomy at L5. Degenerative changes of the spine. No acute fracture. No dislocation. Soft tissues: Unremarkable. Vasculature: Atherosclerotic changes of the aorta. No abdominal aortic aneurysm. Lymph nodes: Unremarkable. No enlarged lymph nodes. IMPRESSION: 1. Hepatic steatosis. 2. Prominent small bowel measuring up to 2.6 cm with mild wall thickening. Correlate for enteritis/ileus. 3. Mild-moderate fecal retention, correlate for constipation. 4. Appendectomy. No postoperative abscess or fluid collection. Electronically signed by: Jesus Velasquez MD 05/08/23 00:02 AM MDM Narrative Prior records/ancillary studies reviewed. Triage Nursing notes reviewed. Additional history obtained from family The patient's history was concerning for fever, abdominal pain and recent appendectomy. Differential diagnosis: Etiologies such as postop infection, sepsis, UTI, pneumonia, metabolic, electrolyte abnormalities, cardiac sources, intracerebral event, toxicologic, neurologic, as well as others were entertained. Physical examination: As above. Pertinent findings were abdominal tenderness. Vital signs reviewed and revealed tachycardic and febrile. ER treatment provided: IV fluid resuscitation with Normal saline solution, 1750 mL bolus. This meets septic protocol IV fluid hydration with Normal saline solution at 75 mL/hr. Blood and urine cultures Antibiotics: Meropenem. Patient has multiple drug allergies An order was placed for continuous cardiac monitoring. The monitor shows a rate of 60-1 50 with a sinus rhythm per my interpretation. Surgery was immediately consulted and the case was discussed On reassessment the patient vital signs improved. Diagnostics interpretation by me: ECG: Ordered for sepsis EKG: Normal sinus, no acute ST-T wave changes. Impression normal sinus rhythm Q waves inferior leads independent interpreted by myself I think arrhythmia is unlikely. EKG shows normal sinus rhythm with no interval abnormalities such as QT prolongation or WPW. There are no findings to suggest Brugada syndrome. Cardiac monitoring in the emergency department reveals no tachycardic or bradycardic dysrhythmia. Hypertrophic cardiomyopathy was considered but there are no clear historical elements pointing toward this. EKG is not suggestive. The QRS voltage is not extremely large The labs Independently Interpreted by myself revealed no worrisome leukocytosis on CBC. Chemistry panel revealed low magnesium and this was replaced intravenously. LFTs revealed. Cardiac enzymes were negative. Serum Lactate measurement was negative. Blood and urine cultures are pending. Negative BioFire Imaging studies: Chest xray revealed with no acute consolidation, pneumothorax or free air per my independent hypertension. CT the abdomen pelvis was negative for obstruction or abscess per my independent interpretation. Ileus is present. Consultation: A consultation was placed with the surgical team. the case was discussed and diagnostics were reviewed. The patient was evaluated in the ER for further treatment. Exam and history seem consistent with postoperative fever with ileus. Surgery was consulted and will evaluate and admit the patient. Patient was started on antibiotics upon initial evaluation for possible postop infection. No obvious sources were seen. BioFire is negative. CT scan with no abscess. Urine was not infected. X-ray is clear. Patient was reassessed multiple times. She is agreeable to treatment plan of admission. The chart was completed utilizing [employer] voice recognition software. Grammatical errors, random word insertions, pronoun errors, and incomplete sentences are an occassional consequence of this system due to software limitations, ambient noise, and hardware issues. Any formal questions or concerns about the content, text, or information contained within the body of this dictation should be directly addressed to the physician research assistant member for clarification. Impression & Plan Postoperative fever, Ileus Discharge Plan Visit Data Chief Complaint: Fever Stated Complaint: SURGERY THURSDAY,PAIN,FEVER ED Provider: Dejuan Osborne ED Midlevel Provider: Danelle Adkins Discharge Problem: Postoperative fever, Ileus Patient Disposition: Being Evaluated by Surgeon Condition: Fair Forms Stand Alone Forms: [facility] Prescriptions Prescriptions: No Action atenolol 25 mg tablet 25 mg PO HS Qty: 90 3RF cyclobenzaprine 5 mg tablet 5 mg PO TID PRN (Reason: muscle pain) Qty: 30 0RF mecobalamin (vitamin B12) 1,000 mcg tablet,chewable 1,000 mcg PO QAM polyethylene glycol 3350 [Miralax] 17 gram/dose powder 17 g PO DAILY Qty: 119 0RF ibuprofen 200 mg capsule 200 mg PO Q6H PRN (Reason: pain) Qty: 10 0RF calcium carbonate-vitamin D3 600 mg(1,500mg) -400 unit capsule 1 cap PO QAM Patient Comments: 1 cap PO DAILY; Rx Instructions: 1 cap PO DAILY; Magnesium Complex 300 mg magnesium tablet 300 mg PO Q2D ezetimibe 10 mg tablet 10 mg PO QAM clopidogrel 75 mg tablet 75 mg PO Q2D Hold Instructions: Resume on 05/08/23. levothyroxine 112 mcg tablet 112 mcg PO QAM Qty: 90 3RF buspirone 5 mg tablet 5 mg PO BID PRN (Reason: anxiety) Qty: 30 2RF multivitamin Tablet 1 tab PO QAM cholecalciferol (vitamin D3) [Vitamin D3] 25 mcg (1,000 unit) tablet 11,000 unit PO QAM clindamycin HCl [Cleocin HCl] 300 mg capsule 300 mg PO BID 5 Days Qty: 10 0RF Referrals Referrals: Apple Curran MD [Primary Care Provider] -
[2023-05-07 23:27] LABS: iSTAT Creatinine 0.6 mg/dl (0.6-1.3); iSTAT Hemoglobin 11.6 g/dl (12.0-16.0); iSTAT Ionized Calcium 1.31 mmol/l (1.12-1.32); iSTAT Potassium 4.1 mmol/L (3.3-5.0)
[2023-05-07 23:38] LABS: Basophils # (auto) 0.03 K/uL (0-0.2); Basophils % (auto) 0.3 %; Eosinophils # (auto) 0.11 K/uL (0-0.50); Eosinophils % (auto) 1.2 %; Hematocrit (blood only) 32.6 % (37.0-47.0); Hemoglobin 11.1 g/dl (12.0-16.0); Immature Granulocytes # (auto) 0.05 K/uL (0.01-0.20); Immature Granulocytes % (auto) 0.5 %; Lymphocytes # (auto) 0.75 K/uL (1.2-3.4); Mean Platelet Volume 10.6 fL (9.4-12.4); Monocytes # (auto) 0.71 K/uL (0.11-0.59); Monocytes % (auto) 7.6 %; Neutrophils # (auto) 7.67 K/uL (1.40-6.50); Neutrophils % (auto) 82.4 %; Platelet Count 212 K/uL (130-400); RDW Coefficient of Variation 12.6 % (11.5-14.5); RDW Standard Deviation 44.9 fL (36.4-46.3); Red Blood Count 3.36 M/uL (4.20-5.40); White Blood Count 9.32 K/ul (4.8-10.8)
[2023-05-07 23:48] LABS: Albumin Level 3.7 gm/dl (3.4-5.0); BUN Creatinine Ratio 21.7 (10-20); Bilirubin Direct 0.2 mg/dl (0-0.2); Bilirubin,Total 0.8 mg/dl (0.2-1.0); Creatinine Clr Calc Pharmacy 62.3 ml/min; Est GFR (Non-African American) 81.1 ml/min; Magnesium 1.6 mg/dl (1.7-2.4); Potassium 4.1 mmol/L (3.5-5.1); Total Protein 6.9 gm/dl (6.0-8.3)
[2023-05-07] MEDS ORDERED: OPTIRAY 320 100ml IV ONE (23:48)
[2023-05-07 23:54] LABS: Troponin I High Sensitivity 7.3 pg/ml (0-14)
--- NOTE | 2023-05-08 00:03 | CT Scan Report ---
Exam(s): CT ABDOMEN + PELVIS With Contrast IV Amt: 93 ML OPTIRAY 320 EXAM: CT Abdomen and Pelvis With Intravenous Contrast CLINICAL HISTORY: Reason for exam: pain/fever, recent appy. TECHNIQUE: Axial computed tomography images of the abdomen and pelvis with intravenous contrast. CTDI is 23.03 mGy and DLP is 1112.33 mGy-cm. Automated exposure control was utilized for the study. A dose lowering technique was utilized adhering to the principles of ALARA. CONTRAST: Patient received 93 ML OPTIRAY 320 of IV contrast COMPARISON: No relevant prior studies available. FINDINGS: Lung bases: Unremarkable. No mass. No consolidation. ABDOMEN: Liver: Hepatic steatosis. Gallbladder and bile ducts: Contracted gallbladder. No calcified stones. No ductal dilation. Pancreas: Unremarkable. No mass. No ductal dilation. Spleen: Unremarkable. No splenomegaly. Adrenals: Unremarkable. No mass. Kidneys and ureters: Unremarkable. No hydronephrosis or delayed nephrogram. Stomach and bowel: Prominent small bowel measuring up to 2.6 cm with mild wall thickening. Correlate for enteritis/ileus. Mild-moderate fecal retention, correlate for constipation. No obstruction. PELVIS: Appendix: Appendectomy. No postoperative abscess or fluid collection. Bladder: Decompression of bladder. Reproductive: Unremarkable as visualized. ABDOMEN and PELVIS: Intraperitoneal space: Unremarkable. No significant fluid collection. No free intraperitoneal air. Bones/joints: Laminectomy at L5. Degenerative changes of the spine. No acute fracture. No dislocation. Soft tissues: Unremarkable. Vasculature: Atherosclerotic changes of the aorta. No abdominal aortic aneurysm. Lymph nodes: Unremarkable. No enlarged lymph nodes. IMPRESSION: 1. Hepatic steatosis. 2. Prominent small bowel measuring up to 2.6 cm with mild wall thickening. Correlate for enteritis/ileus. 3. Mild-moderate fecal retention, correlate for constipation. 4. Appendectomy. No postoperative abscess or fluid collection. Electronically signed by: Jesus Velasquez MD 05/08/23 00:02 AM
[2023-05-08 00:06] LABS: Appearance Urine Cloudy (Clear); Bacteria Urine Automated Negative (Negative); Bilirubin Urine Negative (Negative); Blood Urine Negative (Negative); Color Urine Yellow; Glucose Urine UA Negative (Negative); Ketones Urine Negative (Negative); Leukocyte Esterase Urine Negative (Negative); Nitrite Urine Negative (Negative); Protein Urine Negative (Negative); RBC Urine Automated 0-4 /hpf (0-4); Specific Gravity Urine 1.016 (1.000-1.030); Urobilinogen Urine Negative (Negative); pH Urine 8.5 (4.5-7.5)
[2023-05-08] MEDS: MAGNESIUM SULFATE / D5W 1 GM/100 ML BAG IV SCH ×2 (00:39→03:12)
--- NOTE | 2023-05-08 00:45 | History & Physical Report ---
Date of Service May 08, 2023 Assessment & Plan (1) S/P laparoscopic appendectomy: (2) Ileus: (3) Constipation: (4) Postoperative fever: Plan: Due to the patient's recent surgical procedure and her current clinical presentation we will admit her to the hospital proceeding as follows: At the present time we do not have an exact cause of patient's fever. We will maintain supportive measures which will be delineated below We will continue antibiotics in the form of ertapenem for the present time. The patient has had blood cultures sent and we will follow for the results of these with appropriate actions as indicated We will maintain hydration measures with intravenous fluids We will continue analgesia/antipyretic measures with acetaminophen We will continue antiemetic measures with Zofran As the patient has an ileus at the present time we will keep her n.p.o. except for ice chips at this time The patient is noted to have stool burden/constipation on her CT scan. The patient did take MiraLAX on 05/06/2023 and 05/07/2023. She is passing flatus. Ambulation will be encouraged and hydration measures will be employed as noted above. Consideration be given to providing further agents to assist with bowel movements. We will encourage her to use her an incentive spirometer at bedside Serial labs will be followed Additional recommendations to be forthcoming based on her clinical course as unfolds and as well as pending items as they are completed We will use subcutaneous heparin for DVT prophylaxis The patient be a level 1 full code History of Present Illness Chief Complaint: Fever and abdominal pain Primary Care Provider: Apple Curran MD This is an 83-year-old female who is well-known to the [facility] physician group general surgery department. The patient was previously admitted to [facility] on 05/03/2023. At that time the patient presented with abdominal pain and she underwent a CT scan of the abdomen pelvis that showed findings consistent with acute appendicitis. She was noted to have a 5 mm appendicolith and a fluid filled and dilated appendix with periappendiceal inflammation. The appendix was not perforated and there is no intra-abdominal abscess. She also underwent a chest x-ray on this date that showed no evidence of pneumonia. The patient was ultimately taken to the operating room on the same day of admission where she underwent a successful laparoscopic appendectomy by Dr. Ramondelli. At the time of surgery the patient was noted to have an ischemic/gangrenous appendix that had not perforated. During patient's postoperative course she did have some significant abdominal pain and concern for postoperative ileus and therefore she was not discharged home until postop day #2 which was 05/05/2023. It should be noted that the patient's most recent labs during that hospitalization were from 05/04/2023 at which time she was noted to have a white blood cell count of 14.7. Her hemoglobin and hematocrit were 11.6 and 34.8 and her platelet count was normal. Her electrolytes revealed a sodium of 133 with a normal potassium. Her BUN and creatinine were also normal. It is noteworthy to mention that the patient was tested for COVID during this admission which was also noted to be negative. The patient notes that she was initially doing well immediately upon return home but she called the answering service on 05/07/2023 at approximately 10:00 PM as she was having significant abdominal pain unresponsive to ibuprofen and hydrocodone. She notes that she was having issues with constipation despite taking MiraLAX and she also reported fevers as high as 101.5. She was instructed to report to the emergency department for further evaluation which she did. Upon arrival to the emergency department the patient was evaluated and her main complaint in addition to her fever was abdominal pain. She notes that the pain was greatest on the right side of her abdomen without radiation. She noted that she did not have any palliative or provocative factors related to her abdominal pain. She did report some nausea without vomiting. She notes that she has taken MiraLAX on 05/06/2023 and 05/07/2023 and despite taking this has not had a bowel movement since her surgery. She does report that she is passing flatus. She denies any chest pain or pleurisy. She says she is not short of breath and does not report a cough. She denies any sore throat. She denies any dysuria. She denies any neck pain. She denies any calf tenderness in her lower extremities. Upon presentation to the emergency department the patient had labs and imaging which I independent reviewed. A chest x-ray did not appear to have any infiltrates suggestive of pneumonia. She did undergo a CT scan of the abdomen pelvis that showed findings consistent with an appendectomy with no postoperative abscess or fluid collection noted. There were no significant intra-abdominal fluid collections and there is no intraperitoneal free air. The patient was noted to have prominent small bowel loops measuring up to 2.6 cm with mild wall thickening which is felt to either represent an enteritis or ileus. Patient was also noted to have mild to moderate fecal retention/stool burden consistent with constipation. There is no evidence of small bowel obstruction. Labs include a CBC were white blood cell count was within normal range and her hemoglobin and hematocrit were 11.1 and 32.6. This level of hemoglobin and hematocrit did not represent a significant drop from postoperative values. Her platelet count remained in the normal range. Chemistry profile showed sodium and potassium were both normal. Her BUN and creatinine were both normal. There is no elevation of patient's LFTs. Her lactic acid level was nonelevated. She had a slightly low magnesium level at 1.6. A procalcitonin level was nonelevated. Urinalysis was not indicative of infection. She did have a respiratory bio fire profile sent which was negative for all items tested, including coronavirus. Since arrival to the emergency department the patient has received 2 g of meropenem for antibiotic coverage. She received approximately 1750 L of normal saline solution and 1000 mg of Tylenol. In addition she has received 1 g of magnesium sulfate for supplementation of this electrolyte deficiency noted on her previously mentioned labs. At time of initial visit the patient appeared somewhat uncomfortable but with the above-noted modalities she did note some symptomatic relief. Allergies Allergy/AdvReac Type Severity Reaction Status Date / Time cephalexin Allergy Intermediate hives Verified 04/16/23 08:36 levofloxacin Allergy Intermediate RASH Verified 04/16/23 08:36 cantaloupe Allergy Mild ITCHY Verified 04/16/23 08:36 MOUTH WITH MELONS/CANTALOPE,WATERMELON,CANTALOPE cat dander Allergy Mild itchy eye Verified 04/16/23 08:36 and sneeze melon Allergy Mild ITCHY Verified 04/16/23 08:36 MOUTH WITH MELONS/CANTALOPE,WATERMELON,CANTALOPE tramadol Allergy Mild ITCHING Verified 04/16/23 08:36 vaccine adjuvant system, Allergy Mild Unresponsiv Verified 04/16/23 08:36 AS01B liposomal e [From Shingrix (PF)] varicella-zoster virus Allergy Mild Unknown Verified 04/16/23 08:36 glycoprotein E, recombinant [From Shingrix (PF)] amoxicillin Allergy Unknown itching Verified 04/16/23 08:36 hazelnut Allergy Unknown ITCHY MOUTH Verified 04/16/23 08:36 oxycodone Allergy Unknown Unknown Verified 04/16/23 08:36 squash Allergy Unknown GI SYMPTOMS Verified 04/16/23 08:36 zoster vaccine live Allergy Unknown rash, Verified 04/16/23 08:36 swelling crab AdvReac Unknown stomach Verified 04/16/23 08:36 ache Home Medications Medication Instructions Recorded Confirmed Type calcium carbonate 600 mg-vitamin 1 cap PO QAM 07/25/19 05/07/23 History D3 10 mcg (400 unit) capsule multivitamin 1 tab PO QAM 01/23/20 05/07/23 History magnesium carb,citrate,oxide 300 mg PO Q2D 12/17/21 05/07/23 History (Magnesium Complex) mecobalamin (vitamin B12) 1,000 1,000 mcg PO QAM 09/29/22 05/07/23 History mcg chewable tablet atenolol 25 mg tablet 25 mg PO HS #90 tabs 10/15/22 05/07/23 Rx buspirone 5 mg tablet 5 mg PO BID PRN anxiety #30 tabs 01/07/23 05/07/23 Rx cholecalciferol (vitamin D3) 25 11,000 unit PO QAM 01/07/23 05/07/23 History mcg (1,000 unit) tablet (Vitamin D3) clopidogrel 75 mg tablet 75 mg PO Q2D 01/07/23 05/07/23 History ezetimibe 10 mg tablet 10 mg PO QAM 01/07/23 05/07/23 History levothyroxine 112 mcg tablet 112 mcg PO QAM #90 tabs 01/07/23 05/07/23 Rx cyclobenzaprine 5 mg tablet 5 mg PO TID PRN muscle pain #30 02/10/23 05/07/23 Rx tabs clindamycin HCl 300 mg capsule 300 mg PO BID 5 days #10 caps 05/04/23 05/07/23 Rx (Cleocin HCl) ibuprofen 200 mg capsule 200 mg PO Q6H PRN pain #10 caps 05/07/23 05/07/23 Rx polyethylene glycol 3350 17 17 g PO DAILY #119 grams 05/07/23 05/07/23 Rx gram/dose oral powder (Miralax) Past Med/Surg History Medical History Asthma NO REGULAR USE OF INHALERS Carpal tunnel syndrome, bilateral Chronic constipation Confusion mild confusion - seen Dr Delaney in 11/30 Drug allergy Expressive aphasia ?TIA? 2015-PLACED ON PLAVIX-NO ISSUES SINCE PER PT-F/U DR DELANEY Hx of seasonal allergies Hyperlipidemia Hypothyroidism Idiopathic progressive polyneuropathy Migraine VISUAL DISTURBANCE-NO HEADACHE-F/U DR DELANEY Mild obstructive sleep apnea does not use device Neck muscle spasm Osteopenia Paroxysmal SVT (supraventricular tachycardia) pt denies Premature ventricular contractions takes atenolol; f/u Dr. [place], [facility] Pulmonary nodule follow with [facility] Rosacea Sleep disturbances Surgical History H/O hand surgery [facility]. Trigger finger surgery Oct 2020 History of carpal tunnel surgery of left wrist [facility] 03/2022 History of laparoscopic appendectomy (05/03/23) Laparoscopic Appendectomy - Paulo Milner MD, FACS S/P cataract surgery R/L S/P colonoscopy S/P dilatation and curettage S/P knee surgery RIGHT SCOPE S/P spinal surgery l4 -5 S/P trigger finger release Family History Mother Family history of diabetes mellitus Pure hypercholesterolemia Hypertension Glaucoma Stroke syndrome Diabetes Stroke Father Stroke syndrome Myocardial infarction Heart disease Other No family history of allergies No family history of bleeding disorder Denies family history of Ovarian cancer Prostate cancer Hearing loss Breast cancer Colorectal cancer Cancer Asthma Social History Smoking Status: Former smoker Tobacco Type: Cigarettes packs per day: 1; Second Hand Exposure: Yes (hx growing up); Do You Dip or Chew Tobacco: No; Hx Alcohol Use: Yes Alcohol type: wine Alcohol Intake Frequency Comment: 2 glasses of wine per day Hx Substance Use: No Preferred Language: Slovenian Communication Ability: Effective Visual Impairment: No Limitations Hearing Ability: Normal 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 Beliefs That Will Affect Care: None marital status: Current Living Situation: Spouse current occupational status: retired How many Children do You have: 4 Other Information That Helps Us Care for You: No Feels Safe at Home: Yes Safety Concerns: Feels Safe At This Time Childhood Exposure to Second-Hand Smoke: Yes Dental Care, Regularly: Yes Physical Activity Frequency: Daily Seatbelt Use: always Sunscreen Use: Yes Assistive Devices: Glasses Review of Systems Constitutional: + fever, + chills and + fatigue Ear, Nose, Mouth, Throat: no hearing loss and no sore throat Respiratory: no cough and no dyspnea Cardiovascular: no chest pain and no calf pain Gastrointestinal: + nausea and + constipation; no abdominal pain and no vomiting Genitourinary: no dysuria Musculoskeletal: no neck pain and no myalgia Integumentary: no rash Neurologic: no localized weakness Physical Exam Constitutional: WD/WN, vitals as above Eyes: no conjunctival abnormality ENMT: Ears: no hearing impairment and no external ear abnormality Mouth: no oropharynx abnormality No erythema of the pharynx noted Neck: trachea midline No nuchal rigidity noted Respiratory: normal respiratory effort, lungs clear to auscultation Cardiovascular: Rate/Rhythm: regular rate and regular rhythm Vessels: dorsalis pedis pulses present and radial pulses present Gastrointestinal (Abdomen): Patient has 3 laparoscopic surgical incisions that are clean, dry, and intact. There is a small amount of erythema surrounding each incision. The patient's abdomen is soft with mild to moderate distention. It is nonrigid. Patient had marked tenderness with palpation on the right side of her abdomen. Musculoskeletal: No lower extremity edema or calf tenderness. Feet are warm and well-perfused Skin: no rashes Neurologic: moves all extremities Psychiatric: A+Ox3, euthymic affect Results & Data Results & Data Vital Signs (Past 12 Hours) Vital Signs Temp Pulse Resp BP Pulse Ox O2 Del Method 05/08/23 00:00 79 22 94 05/07/23 23:10 93 H 05/07/23 22:30 39.4 C H 107 H 19 138/69 91 Room Air Supervising Physician Co-Signing Physician Notes as per George MENDOZA agree with plans PG Care Time/CCT Total # of Minutes Spent Total Time Spent with Patient: Total time spent is greater than 50% in coordination of care (as documented) at patient's floor/unit and/or counseling patient: Coding Level of Care Code None Diagnoses S/P laparoscopic appendectomy Z90.49 Ileus K56.7 Constipation K59.00 Postoperative fever R50.82
[2023-05-08] MEDS ORDERED: ONDANSETRON INJ 2 MG/ML 2 ML VIAL IV PRN (01:01)
[2023-05-08] MEDS ORDERED: ACETAMINOPHEN 1,000 MG/100 ML VIAL IV PRN (01:01)
[2023-05-08 01:07] LABS: Adenovirus PCR Not Detected (NotDetected); Bordetella parapertussis PCR Not Detected (NotDetected); Bordetella pertussis PCR Not Detected (NotDetected); Chlamydia pneumoniae PCR Not Detected (NotDetected); Coronavirus 229E PCR Not Detected (NotDetected); Coronavirus CoV-2 (COVID19)PCR Not Detected (NotDetected); Coronavirus HKU1 PCR Not Detected (NotDetected); Coronavirus NL63 PCR Not Detected (NotDetected); Coronavirus OC43PCR Not Detected (NotDetected); Human Metapneumovirus PCR Not Detected (NotDetected); Influenza A PCR Not Detected (NotDetected); Influenza B PCR Not Detected (NotDetected); Mycoplasma pneumoniae PCR Not Detected (NotDetected); Parainfluenza Virus 1 PCR Not Detected (NotDetected); Parainfluenza Virus 2 PCR Not Detected (NotDetected); Parainfluenza Virus 3 PCR Not Detected (NotDetected); Parainfluenza Virus 4 PCR Not Detected (NotDetected); Respiratory Syncytial VirusPCR Not Detected (NotDetected); Rhinovirus/Enterovirus PCR Not Detected (NotDetected)
[2023-05-08] MEDS ORDERED: busPIRone 5 MG TAB PO PRN (02:16)
[2023-05-08] MEDS ORDERED: CYCLOBENZAPRINE HCL 5 MG TAB PO PRN (02:16)
[2023-05-08] MEDS: LACTATED RINGER'S 1,000 ML IV SCH ×2 (03:12→08:58)
[2023-05-08] MEDS ORDERED: ERTAPENEM SODIUM 1,000 MG in SYRINGE 0 ML IV SCH (06:00)
[2023-05-08 06:14] LABS: Basophils # (auto) 0.02 K/uL (0-0.2); Basophils % (auto) 0.2 %; Hematocrit (blood only) 29.1 % (37.0-47.0); Hemoglobin 9.8 g/dl (12.0-16.0); Immature Granulocytes # (auto) 0.06 K/uL (0.01-0.20); Immature Granulocytes % (auto) 0.6 %; Lymphocytes # (auto) 1.33 K/uL (1.2-3.4); Lymphocytes % (auto) 13.6 %; Mean Corpuscular Hemoglobin 33.3 pg (25.0-34.0); Mean Corpuscular Hgb Conc 33.7 g/dL (32.0-36.0); Monocytes # (auto) 0.88 K/uL (0.11-0.59); Neutrophils # (auto) 7.39 K/uL (1.40-6.50); Neutrophils % (auto) 75.6 %; Platelet Count 189 K/uL (130-400); RDW Coefficient of Variation 12.8 % (11.5-14.5); Red Blood Count 2.94 M/uL (4.20-5.40); White Blood Count 9.78 K/ul (4.8-10.8)
[2023-05-08 06:28] LABS: BUN Creatinine Ratio 21.4 (10-20); Calcium 8.9 mg/dl (8.6-10.3); Creatinine Clr Calc Pharmacy 77.6 ml/min; Est GFR (African American) 100.6 ml/min; Est GFR (Non-African American) 86.8 ml/min; Magnesium 2.2 mg/dl (1.7-2.4); Potassium 4.3 mmol/L (3.5-5.1)
[2023-05-08] MEDS ORDERED: LEVOTHYROXINE SODIUM 112 MCG TABLET PO SCH (06:30)
--- NOTE | 2023-05-08 06:36 | XRay Report ---
XR chest 1V portable CLINICAL HISTORY: Sepsis. COMPARISON STUDY: Chest CT September 25, 2022. Chest radiograph May 03, 2023. FINDINGS: Lung volumes are normal. There is no consolidation to suggest pneumonia. Mild left basilar opacity favors atelectasis. There is no pneumothorax or pleural effusion. Mild cardiomegaly is unchan ged. Mediastinal contours are normal. There is no evidence for pulmonary edema. IMPRESSION: No acute cardiopulmonary findings. ACT 112: Negative or not required by law. Electronically signed by: Bill Liu M.D. 05/08/2023 6:34 AM
[2023-05-08] MEDS ORDERED: SOD PHOSPHATE/SOD BIPHOSPHATE ENEMA 132 ML BTL PR STA (08:35)
--- NOTE | 2023-05-08 08:46 | Surgery Progress Note ---
Date of Service May 08, 2023 Assessment & Plan (1) Ileus: Plan: POD 5 Lap Appy presented to ER with c/o fever, abdominal pain and constipation CT scan notes moderate stool burden, No BM since surgery Afebrile since this AM WBC 9.7 Passing Flatus, order enema and clear liquid diet reports mild nausea denies vomiting Can restart Plavix 05/09/23 Will follow and check on later today if doing well and has BM can D/c home otherwise [facility] surgery covering the weekend Patient seen and examined with Dr. Milner Admission and Anticipated Discharge Date Admission Date: May 08, 2023 Supervising Physician Co-Signing Physician Notes Patient is resting relatively comfortably at this time main complaint is belly slightly distended on examination trocar sites are healing well minimal abdominal guarding CAT scan was reviewed patient has significant colonic contents and likely an ileus (patient had a significantly inflamed appendix by appearance to look necrotic without any perforation) Path noted Have the patient take a fleets enema restarted on some liquids reevaluate her later today depending how she feels she could be discharged Hold off restarting Plavix for now plan to restart a Thursday or Thursday The CAT scan Subjective Patient reports pain is better today than yesterday, + flatus however still has not had a BM since surgery 05/03. Reports mild nausea. Tolerating ice chips. Physical Exam Constitutional: cooperative and comfortable alert/ oriented, anxious Respiratory: normal respiratory effort; no respiratory distress, no labored breathing and does not use accessory muscles Cardiovascular: Rate/Rhythm: regular rate Gastrointestinal (Abdomen): Inspection/Auscultation: + abdomen distended (mildly) and + abdominal surgical incision Results & Data Vital Signs (Past 12 Hours) Vital Signs Temp Pulse Pulse Resp BP BP Pulse Ox 05/08/23 08:26 97.9 F 64 20 147/74 H 96 05/08/23 07:13 65 05/08/23 02:00 05/08/23 02:00 98.1 F 69 18 129/71 95 05/08/23 04:08 97.9 F 61 16 112/64 94 05/08/23 02:05 70 05/08/23 01:36 98.1 F 05/08/23 01:30 70 20 113/59 L 95 05/08/23 01:00 78 22 113/62 95 05/08/23 01:17 94 05/08/23 00:00 79 22 94 05/07/23 23:10 93 H 05/07/23 22:30 102.9 F H 107 H 19 138/69 91 O2 Del Method O2 Flow Rate 05/08/23 08:26 Room Air 05/08/23 07:13 05/08/23 02:00 Nasal Cannula 2 05/08/23 02:00 Nasal Cannula 2 05/08/23 04:08 Room Air 05/08/23 02:05 05/08/23 01:36 05/08/23 01:30 05/08/23 01:00 05/08/23 01:17 Nasal Cannula 2 05/08/23 00:00 05/07/23 23:10 05/07/23 22:30 Room Air PG Care Time/CCT Total # of Minutes Spent Total Time Spent with Patient: Total time spent is greater than 50% in coordination of care (as documented) at patient's floor/unit and/or counseling patient: Coding Level of Care Code None Diagnoses Ileus K56.7
[2023-05-08] MEDS ORDERED: EZETIMIBE 10 MG TABLET PO SCH (09:00)
[2023-05-08] MEDS ORDERED: HEPARIN SOD 5,000 UNIT/0.5 ML VIAL SQ SCH (09:00)
[2023-05-08] MEDS ORDERED: bisacodyL 10 MG SUPP PR STA (12:59)
[2023-05-08] MEDS ORDERED: ATENOLOL 25 MG TABLET PO SCH (21:00)
[2023-05-09] MEDS ORDERED: CLOPIDOGREL BISULFATE 75 MG TAB PO SCH (09:00)
--- NOTE | 2023-05-09 12:29 | Electrocardiogram Report ---
Test Reason : Blood Pressure : / mmHG Vent. Rate : 094 BPM Atrial Rate : 094 BPM P-R Int : 130 ms QRS Dur : 076 ms QT Int : 332 ms P-R-T Axes : 032 014 037 degrees QTc Int : 415 ms Normal sinus rhythm Low voltage QRS Septal infarct Cannot rule out Inferior infarct Abnormal ECG When compared with ECG of 03-MAY-2023 20:21, No significant change Confirmed by Noe Cooper ([id number]) on 05/09/2023 12:29:14 PM Referred By: REFERRED SELF Confirmed By:Noe Cooper
--- NOTE | 2023-05-11 07:10 | Coding Query ---
Your help is needed for correct coding of this account; please clarify if the patients Ileus was: ( ) expected out of the surgery ( ) unexpected complication from the surgery (x )other please specify constipation Thank you iNcole MILLER
== END 2023-05-08 16:57 | disposition home or self-care (01) | DRG 392 ==
LOC: ED 22:29 → 2W 05-08 01:07

== ENCOUNTER 2024-02-11 10:18 | Observation (INO) ==
--- NOTE | 2024-01-28 09:47 | Anesthesiology Consultation ---
Date of Service January 28, 2024 Assessment & Plan Chart Review Chart Review: Acceptable Risk for Surgery and Patient NOT seen in Pre Admission Testing Consults Requested none ASA ASA3 Proposed Anesthesia Anesthesia Type: General History Surgery Operation Date: 02/11/24 08:15 Proposed Procedures p Open Incisional Hernia Repair with Mesh - Jarad Christian, Height/Weight Height: 5 ft 4 in Weight: 71.033 kg Allergies Allergy/AdvReac Type Severity Reaction Status Date / Time amoxicillin Allergy Unknown itching Verified 01/27/24 14:34 cantaloupe Allergy Unknown ITCHY Verified 01/27/24 14:34 MOUTH WITH MELONS/CANTALOPE,WATERMELON,CANTALOPE cat dander Allergy Unknown itchy eye Verified 01/27/24 14:34 and sneeze cephalexin Allergy Unknown hives Verified 01/27/24 14:34 hazelnut Allergy Unknown ITCHY MOUTH Verified 01/27/24 14:34 levofloxacin Allergy Unknown RASH Verified 01/27/24 14:34 melon Allergy Unknown ITCHY Verified 01/27/24 14:34 MOUTH WITH MELONS/CANTALOPE,WATERMELON,CANTALOPE oxycodone Allergy Unknown pt doesn't Verified 01/27/24 14:34 remember/couldn't tolerate ? tramadol Allergy Unknown ITCHING Verified 01/27/24 14:34 vaccine adjuvant system, Allergy Unknown skin Verified 01/27/24 14:34 AS01B liposomal tested and [From Shingrix (PF)] raised a huge bump varicella-zoster virus Allergy Unknown skin Verified 01/27/24 14:34 glycoprotein E, recombinant tested and [From Shingrix (PF)] raised a huge bump zoster vaccine live Allergy Unknown see Verified 01/27/24 14:34 entries above regarding skin tests for shingles vaccine crab AdvReac Unknown stomach Verified 01/27/24 14:34 ache squash AdvReac Unknown GI SYMPTOMS Verified 01/27/24 14:34 Medications Home Medications Medication Instructions Recorded Confirmed Last Taken calcium carbonate 600 mg-vitamin 1 cap PO QAM 07/25/19 01/27/24 04/02/22 D3 10 mcg (400 unit) capsule multivitamin 1 tab PO QAM 01/23/20 01/27/24 04/02/22 mecobalamin (vitamin B12) 1,000 1,000 mcg PO QAM 09/29/22 01/27/24 Unknown mcg chewable tablet cholecalciferol (vitamin D3) 25 5,000 unit PO QAM 01/07/23 01/27/24 Unknown mcg (1,000 unit) tablet (Vitamin D3) levothyroxine 112 mcg tablet 112 mcg PO QAM #90 tabs 01/07/23 01/27/24 04/16/23 07:00 cyclobenzaprine 5 mg tablet 5 mg PO UD PRN muscle pain 06/04/23 01/27/24 Unknown magnesium 250 mg tablet 250 mg PO QDL 07/10/23 01/27/24 Unknown clopidogrel 75 mg tablet 75 mg PO Q2D #45 tabs 09/10/23 01/27/24 Unknown ezetimibe 10 mg tablet 10 mg PO QAM #90 tabs 12/10/23 01/27/24 Unknown atenolol 25 mg tablet 50 mg PO HS 01/27/24 01/27/24 Unknown citalopram 20 mg tablet 20 mg PO QAM 01/27/24 01/27/24 Unknown estradiol 0.01% (0.1 mg/gram) 1 g vaginal UD 01/27/24 01/27/24 Unknown vaginal cream ibuprofen 200 mg capsule 200 mg PO UD PRN pain 01/27/24 01/27/24 Unknown Past Medical History Medical History History of COVID-19 early Oct 2023 + home test through [facility]/ cough , chills , fever, fatigue. Residual : post nasal drip. History of colon polyps Trigger finger Hx of seasonal allergies Mild obstructive sleep apnea no device recommended Pulmonary nodule follow with [facility] Confusion mild confusion - seen Dr Delaney in 11/30 - no findings/annual visits. Migraine VISUAL DISTURBANCE-NO HEADACHE-F/U DR DELANEY Asthma hx childhoold/last flare 15 yr ago Expressive aphasia 2016-PLACED ON PLAVIX-NO ISSUES SINCE PER PT-F/U DR DELANEY/visits annual Hyperlipidemia Hypothyroidism Idiopathic progressive polyneuropathy Neck muscle spasm Osteopenia Paroxysmal SVT (supraventricular tachycardia) pt denies Premature ventricular contractions takes atenolol; [place] [facility] [place] reports an increase of pvc's lately/ increase of atenolol dose by [facility] nurse practitioner/has f/u with Dr. Madera 01/29/24. Rosacea Exercise / Class Metabolic Activity III < 4 Walking/Shop/Light housework Past Family History Family History Mother Family history of diabetes mellitus Pure hypercholesterolemia Hypertension Glaucoma Stroke syndrome Diabetes Stroke Father Stroke syndrome Myocardial infarction Heart disease Other No family history of allergies No family history of bleeding disorder Denies family history of Ovarian cancer Prostate cancer Hearing loss Breast cancer Colorectal cancer Cancer Asthma Past Surgical History Surgical History History of carpal tunnel surgery of right wrist History of laparoscopic appendectomy (05/03/23) Laparoscopic Appendectomy - Paulo Milner MD, FACS History of carpal tunnel surgery of left [place] [facility] hand surgery [facility]. Trigger finger surgery Oct 2020 S/P cataract surgery R/L S/P knee surgery RIGHT SCOPE S/P spinal surgery l4 -5 S/P colonoscopy S/P dilatation and curettage Past Anesthesia History No Hx of Anesthesia Complications and No Family Hx of Anesthesia Complications History of PONV No Hx of PONV and No Hx of Motion Sickness Social History Smoking Status: Former smoker Do You Dip or Chew Tobacco: No Smoking End Date: smoker in college/quit remote hx Hx Alcohol Use: Yes Alcohol type: wine alcohol intake frequency: 0-2 drinks per day Hx Substance Use: No substance use type: does not use Testing Electrocardiogram Date: 05/07/23 Findings: + NSR @ (@ 94;low voltage QRS;? septal infarct ,age ?) Chest X-Ray Date: 11/23/23 Findings: + NAD Echocardiogram Date: 12/15/21 EF: 55% Other Findings: + LVH (mild) and + diastolic dysfunction (Grade 1) Valvular Disease: + AI (mild)
--- NOTE | 2024-02-11 09:19 | History & Physical Report ---
Date of Service February 11, 2024 Assessment & Plan (1) Incisional hernia, incarcerated: Plan: discussed surgical options and risks. will proceed today with open incisional hernia repair with mesh. questions answered. she is agreeable. History of Present Illness Primary Care Provider: Apple Curran MD pt here for repair of her supra umbilical incisional hernia. there has been no major health status changes since I had seen her last in the office. Allergies Allergy/AdvReac Type Severity Reaction Status Date / Time amoxicillin Allergy Unknown itching Verified 02/01/24 09:59 cantaloupe Allergy Unknown ITCHY Verified 02/01/24 09:59 MOUTH WITH MELONS/CANTALOPE,WATERMELON,CANTALOPE cat dander Allergy Unknown itchy eye Verified 02/01/24 09:59 and sneeze cephalexin Allergy Unknown hives Verified 02/01/24 09:59 hazelnut Allergy Unknown ITCHY MOUTH Verified 02/01/24 09:59 levofloxacin Allergy Unknown RASH Verified 02/01/24 09:59 melon Allergy Unknown ITCHY Verified 02/01/24 09:59 MOUTH WITH MELONS/CANTALOPE,WATERMELON,CANTALOPE oxycodone Allergy Unknown pt doesn't Verified 02/01/24 09:59 remember/couldn't tolerate ? tramadol Allergy Unknown ITCHING Verified 02/01/24 09:59 vaccine adjuvant system, Allergy Unknown skin Verified 02/01/24 09:59 AS01B liposomal tested and [From Shingrix (PF)] raised a huge bump varicella-zoster virus Allergy Unknown skin Verified 02/01/24 09:59 glycoprotein E, recombinant tested and [From Shingrix (PF)] raised a huge bump zoster vaccine live Allergy Unknown see Verified 02/01/24 09:59 entries above regarding skin tests for shingles vaccine crab AdvReac Unknown stomach Verified 02/01/24 09:59 ache squash AdvReac Unknown GI SYMPTOMS Verified 02/01/24 09:59 Home Medications Medication Instructions Recorded Confirmed Type calcium carbonate 600 mg-vitamin 1 cap PO QAM 07/25/19 02/11/24 History D3 10 mcg (400 unit) capsule multivitamin 1 tab PO QAM 01/23/20 02/11/24 History mecobalamin (vitamin B12) 1,000 1,000 mcg PO QAM 09/29/22 02/11/24 History mcg chewable tablet cholecalciferol (vitamin D3) 25 5,000 unit PO QAM 01/07/23 02/11/24 History mcg (1,000 unit) tablet (Vitamin D3) levothyroxine 112 mcg tablet 112 mcg PO QAM #90 tabs 01/07/23 02/11/24 Rx cyclobenzaprine 5 mg tablet 5 mg PO UD PRN muscle pain 06/04/23 02/11/24 History magnesium 250 mg tablet 250 mg PO QDL 07/10/23 02/11/24 History clopidogrel 75 mg tablet 75 mg PO Q2D #45 tabs 09/10/23 02/11/24 Rx ezetimibe 10 mg tablet 10 mg PO QAM #90 tabs 12/10/23 02/11/24 Rx atenolol 25 mg tablet 50 mg PO HS 01/27/24 02/11/24 History citalopram 20 mg tablet 20 mg PO QAM 01/27/24 02/11/24 History estradiol 0.01% (0.1 mg/gram) 1 g vaginal UD 01/27/24 02/11/24 History vaginal cream ibuprofen 200 mg capsule 200 mg PO UD PRN pain 01/27/24 02/11/24 History triamcinolone acetonide 0.5 % See Rx Instructions topical BID 2 02/01/24 02/11/24 Rx topical ointment weeks #15 grams Past Med/Surg History Medical History History of COVID-19 early Oct 2023 + home test through [facility]/ cough , chills , fever, fatigue. Residual : post nasal drip. History of colon polyps Trigger finger Hx of seasonal allergies Mild obstructive sleep apnea no device recommended Pulmonary nodule follow [facility] Confusion mild confusion - seen Dr Delaney in 11/30 - no findings/annual visits. Migraine VISUAL DISTURBANCE-NO HEADACHE-F/U DR DELANEY Asthma hx childhoold/last flare 15 yr ago Expressive aphasia 2016-PLACED ON PLAVIX-NO ISSUES SINCE PER PT-F/U DR DELANEY/visits annual Hyperlipidemia Hypothyroidism Idiopathic progressive polyneuropathy Neck muscle spasm Osteopenia Paroxysmal SVT (supraventricular tachycardia) pt denies Premature ventricular contractions takes atenolol; f/u Dr. Madera, [facility] [place] pt reports an increase of pvc's lately/ increase of atenolol dose by [facility] nurse practitioner/has f/u with Dr. Madera 01/29/24. Rosacea Surgical History History of carpal tunnel surgery of right wrist History of laparoscopic appendectomy (05/03/23) Laparoscopic Appendectomy - Paulo Milner MD, FACS History of carpal tunnel surgery of left wrist [facility] 03/2022 H/O hand surgery [facility]. Trigger finger surgery Oct 2020 S/P cataract surgery R/L S/P knee surgery RIGHT SCOPE S/P spinal surgery l4 -5 S/P colonoscopy S/P dilatation and curettage Family History Mother Family history of diabetes mellitus Pure hypercholesterolemia Hypertension Glaucoma Stroke syndrome Diabetes Stroke Father Stroke syndrome Myocardial infarction Heart disease Other No family history of allergies No family history of bleeding disorder Denies family history of Ovarian cancer Prostate cancer Hearing loss Breast cancer Colorectal cancer Cancer Asthma Social History Smoking Status: Former smoker Tobacco Type: Cigarettes packs per day: 1; Smoking End Date: smoker in college/quit remote hx; Second Hand Exposure: Yes (hx growing up); Do You Dip or Chew Tobacco: No; Hx Alcohol Use: Yes Alcohol type: wine Alcohol Intake Frequency Comment: 2 glasses of wine per day Hx Substance Use: No Preferred Language: Frisian Communication Ability: Effective Visual Impairment: No Limitations Hearing Ability: Normal Guide Dog Instructor Required: No Beliefs That Will Affect Care: None marital status: Current Living Situation: Spouse Current Living Situation Comment: [facility] current occupational status: retired How many Children do You have: 4 Feels Safe at Home: Yes Childhood Exposure to Second-Hand Smoke: Yes Dental Care, Regularly: Yes Physical Activity Frequency: Daily Seatbelt Use: always Sunscreen Use: Yes Assistive Devices: None Review of Systems All systems reviewed & are unremarkable except as noted in HPI & below Physical Exam Constitutional: WD/WN, vitals as above no acute distress and not ill appearing Eyes: PERRL, conjunctivae normal, anicteric sclerae EOM intact bilaterally ENMT: external ear and nose normal, oropharynx normal Ears: no hearing impairment Neck: trachea midline, no thyromegaly Respiratory: normal respiratory effort; no respiratory distress and does not use accessory muscles Cardiovascular: Rate/Rhythm: regular rate and regular rhythm Gastrointestinal (Abdomen): soft. +obvious supra-umbilical incisional hernia. unchanged from prior. Skin: no rashes, warm and dry Psychiatric: Orientation: alert, oriented x 3 and cooperative
[2024-02-11] MEDS ORDERED: fentaNYL citrate PF 100 MCG/2 ML VIAL ONE (10:57)
[2024-02-11] MEDS ORDERED: MIDAZOLAM HCL 1 MG/ML 2ML VIAL ONE (10:57)
[2024-02-11] MEDS ORDERED: ONDANSETRON INJ 2 MG/ML 2 ML VIAL IV PRN ×3 (11:05→17:06)
[2024-02-11] MEDS ORDERED: ePHEDrine sulfate 50 MG/ML AMP IV PRN (11:05)
[2024-02-11] MEDS ORDERED: ATROPINE SULFATE 0.1 MG/ML 10ML SYR IV PRN (11:05)
[2024-02-11] MEDS: LR 15ML/HR IV SCH (11:24)
[2024-02-11] MEDS: CLINDA 900 MG **Premixed Bag IV SCH (11:54)
[2024-02-11] MEDS ORDERED: DEXAMETHASONE SOD INJ 4 MG/ML VIAL ONE (12:08)
[2024-02-11] MEDS ORDERED: PROPOFOL IV EMULSION 10 MG/ML 20 ML VIAL IV ONE (12:08)
[2024-02-11] MEDS ORDERED: ONDANSETRON INJ 2 MG/ML 2 ML VIAL ONE (12:08)
[2024-02-11] MEDS ORDERED: LIDOCAINE 2% 2 ML VIAL/AMP(20MG/ML) INFIL ONE (12:08)
[2024-02-11] MEDS: BUPIVACAINE/EPINEPHRINE 0.5% MPF 1:200,000 30 ML VIAL ONE (12:47)
--- NOTE | 2024-02-11 12:52 | Operative Report ---
PG Post Operative Report Pre & Post Diagnosis Operation Date: 02/11/24 11:55 Pre-Op Diagnosis: Incisional hernia, incarcerated Post-Op Diagnosis: Incisional hernia, incarcerated I identified the patient and participated in the time-out.: Yes Procedure Operation Date: 02/11/24 11:55 Actual Procedures p Open Incisional Hernia Repair with Mesh(Not Applicable) - Jarad Christian DO Surgeon Jarad Christian, Office Equipment Mechanic gabino Barrios Estimated Blood Loss 5 Findings Consistent with Post-Op Diagnosis Specimens none Description of Procedure After informed consent was obtained the patient was taken to the operating room and placed in supine position. After successful intubation the abdomen was sterilely prepped and draped in usual fashion. I began with a linear incision above the umbilicus. This was carried down through soft tissue using cautery. I readily encountered a hernia sac which I opened and excised in 360 degrees. This exposed an approximate 5 cm hernia defect. There was some small bowel incarceration but I was able to easily reduce it. I performed a finger sweep to take down any adhesions on the undersurface of the fascia. An 8 cm surgi-mesh was then placed as an underlay. It was placed such that the antiadhesive barrier was facing the bowel. I sutured the arms of the mesh on either side with 4-point fixation to underlying fascia using 0 Ethibond. Once this was completed I then primarily closed the fascia over top of the mesh using #1 Ethibond in simple interrupted fashion. The wound was thoroughly irrigated. There was adequate hemostasis. Deep tissue was closed using 2-0 Vicryl and skin was closed using 4-0 Monocryl. Benzoin Steri-Strips gauze and tape were used as a dressing. An abdominal binder was also placed. Marcaine was injected around the incision prior to placing the Steri-Strips. The patient was awakened, extubated and transferred to recovery in stable condition. My physician studio assistant was present through the entire case was instrumental in providing exposure throughout my dissection, assisting with the repair, mesh placement, wound closure and dressing placement. I attest to the content of the Intraoperative Record and any orders documented therein. Any exceptions are noted below.
[2024-02-11] MEDS ORDERED: ROCURONIUM BROMIDE 10 MG/ML 5 ML VIAL IV ONE (12:55)
[2024-02-11] MEDS ORDERED: MoRPHine SULFATE 4 MG/ML 1 ML CARP\\VIAL IV PRN (12:57)
[2024-02-11] MEDS ORDERED: MoRPHine SULFATE 2 MG/ML CARP IV PRN (12:57)
[2024-02-11] MEDS: fentaNYL citrate PF 100 MCG/2 ML VIAL IV PRN (13:10)
[2024-02-11] MEDS: HYDROmorphone INJ 1 MG/ML SYRINGE IV PRN (13:30)
[2024-02-11] MEDS: HYDROCODONE/ACETAMOPHEN 5/325MG TAB PO PRN ×2 (14:20→19:53)
[2024-02-11] MEDS ORDERED: diazePAM 5 MG/ML 10ML VIAL IV STA (17:06)
--- NOTE | 2024-02-11 17:09 | Surgery Progress Note ---
Date of Service February 11, 2024 Assessment & Plan (1) Incisional hernia, incarcerated: Plan: pt 83 and lives at [facility] with spouse who is also elderly and likely not capable of assisting is she has issues overnight. will admit for symptom control . hopeful d/c tomorrow. Subjective requested by PACU to see pt regarding pain. pt having trouble getting comfortable, ambulating and taking deep breaths. pt requesting to be admitted overnight for symptom control. Physical Exam Physical Exam: pt alert but anxious. in moderate discomfort. Gastrointestinal (Abdomen): soft. dressing c/d/i. +diffuse ttp. no peritoneal signs. Results & Data Vital Signs (Past 12 Hours) Vital Signs Temp Pulse Pulse Resp BP Pulse Ox O2 Del Method 02/11/24 15:06 86 20 143/86 H 94 Room Air 02/11/24 14:25 36.5 C 73 20 140/78 93 Room Air 02/11/24 14:07 36.5 C 66 20 142/71 H 94 Room Air 02/11/24 13:40 36.7 C 65 12 134/70 94 Room Air 02/11/24 13:30 65 12 145/72 H 93 Room Air 02/11/24 13:20 68 14 134/80 94 Room Air 02/11/24 13:10 62 16 172/86 H 99 Oxymask 02/11/24 13:00 36.5 C 61 16 157/81 H 100 Oxymask 02/11/24 10:57 36.7 C 68 20 140/69 98 Room Air O2 Flow Rate 02/11/24 15:06 02/11/24 14:25 02/11/24 14:07 02/11/24 13:40 02/11/24 13:30 02/11/24 13:20 02/11/24 13:10 3 02/11/24 13:00 6 02/11/24 10:57 PG Care Time/CCT Total # of Minutes Spent Total Time Spent with Patient: Total time spent is greater than 50% in coordination of care (as documented) at patient's floor/unit and/or counseling patient: Coding Level of Care Code 68429 Post Operative Follow-Up Diagnoses Incisional hernia, incarcerated K43.0
[2024-02-11] MEDS: diazePAM 5 MG TABLET PO STA (17:57)
[2024-02-11] MEDS: SODIUM CHLORIDE 0.9% 1,000 ML IV SCH (18:53)
[2024-02-11] MEDS: ATENOLOL 50 MG TABLET PO SCH (19:50)
[2024-02-12] MEDS: diphenhydrAMINE 50 MG/ML VIAL IV PRN (04:55)
[2024-02-12] MEDS: LEVOTHYROXINE SODIUM 112 MCG TABLET PO SCH (05:53)
[2024-02-12 07:35] VITALS: BP 143/81; PULSE 58; RESP 16; TEMP 97.7; O2SAT 96
[2024-02-12 07:38] LABS: Basophils # (auto) 0.01 K/uL (0.00-0.20); Basophils % (auto) 0.1 %; Eosinophils # (auto) 0.01 K/uL (0.00-0.50); Eosinophils % (auto) 0.1 %; Hemoglobin 12.9 g/dl (12.0-16.0); Immature Granulocytes # (auto) 0.05 K/uL (0.01-0.20); Immature Granulocytes % (auto) 0.4 %; Lymphocytes # (auto) 1.14 K/uL (1.20-3.40); Lymphocytes % (auto) 9.9 %; Mean Corpuscular Hgb Conc 33.1 g/dL (32.0-36.0); Mean Corpuscular Volume 99.7 fL (80.0-100.0); Mean Platelet Volume 10.5 fL (9.4-12.4); Monocytes # (auto) 1.37 K/uL (0.11-0.59); Monocytes % (auto) 11.9 %; Neutrophils # (auto) 8.91 K/uL (1.40-6.50); Neutrophils % (auto) 77.6 %; Platelet Count 173 K/uL (130-400); RDW Coefficient of Variation 12.8 % (11.5-14.5); RDW Standard Deviation 47.5 fL (36.4-46.3); Red Blood Count 3.91 M/uL (4.20-5.40); White Blood Count 11.49 K/ul (4.8-10.8)
[2024-02-12 07:55] LABS: BUN Creatinine Ratio 24.1 (10-20); Calcium 9.2 mg/dl (8.6-10.3); Creatinine Clr Calc Pharmacy 72.3 ml/min; Est GFR (African American) 99.5 ml/min; Est GFR (Non-African American) 85.8 ml/min; Potassium 4.5 mmol/L (3.5-5.1)
[2024-02-12] MEDS: CITALOPRAM 20 MG TAB PO SCH (09:18)
--- NOTE | 2024-02-12 11:52 | Surgery Progress Note ---
Date of Service February 12, 2024 Assessment & Plan (1) Incisional hernia, incarcerated: Plan: pod 1 doing well ok for d/c instructions reviewed. Admission and Anticipated Discharge Date Admission Date: February 11, 2024 Subjective pt seen. doing much better today than yesterday. wants to go home Physical Exam Physical Exam: alert. nad abd: soft. dressings c/d/i. expected tenderness Results & Data Vital Signs (Past 12 Hours) Vital Signs Temp Pulse Pulse Resp BP Pulse Ox O2 Del Method 02/12/24 07:35 36.5 C 58 L 16 143/81 H 96 Nasal Cannula 02/12/24 02:56 36.6 C 62 18 142/77 H 97 Nasal Cannula O2 Flow Rate 02/12/24 07:35 1 02/12/24 02:56 PG Care Time/CCT Total # of Minutes Spent Total Time Spent with Patient: Total time spent is greater than 50% in coordination of care (as documented) at patient's floor/unit and/or counseling patient: Coding Level of Care Code 21596 Post Operative Follow-Up Diagnoses Incisional hernia, incarcerated K43.0
--- NOTE | 2024-02-15 08:11 | Discharge Summary ---
Date of Service February 12, 2024 Admission HPI Per Admitting Provider pt here for repair of her supra umbilical incisional hernia. there has been no major health status changes since I had seen her last in the office. Principal Diagnosis incisional hernia, incarcerated Discharge Exam awake, alert, no distress Respiratory normal respiratory effort Gastrointestinal (Abdomen) Inspection/Auscultation: + abdominal surgical incision (abdominal binder in place, incisions c/d/i ) Percussion/Palpation: + abdomen tender (expected bladimir incisional discomfort ) and abdomen soft Discharge Data Allergies Allergy/AdvReac Type Severity Reaction Status Date / Time amoxicillin Allergy Unknown itching Verified 02/01/24 09:59 cantaloupe Allergy Unknown ITCHY Verified 02/01/24 09:59 MOUTH WITH MELONS/CANTALOPE,WATERMELON,CANTALOPE cat dander Allergy Unknown itchy eye Verified 02/01/24 09:59 and sneeze cephalexin Allergy Unknown hives Verified 02/01/24 09:59 hazelnut Allergy Unknown ITCHY MOUTH Verified 02/01/24 09:59 levofloxacin Allergy Unknown RASH Verified 02/01/24 09:59 melon Allergy Unknown ITCHY Verified 02/01/24 09:59 MOUTH WITH MELONS/CANTALOPE,WATERMELON,CANTALOPE oxycodone Allergy Unknown pt doesn't Verified 02/01/24 09:59 remember/couldn't tolerate ? tramadol Allergy Unknown ITCHING Verified 02/01/24 09:59 vaccine adjuvant system, Allergy Unknown skin Verified 02/01/24 09:59 AS01B liposomal tested and [From Shingrix (PF)] raised a huge bump varicella-zoster virus Allergy Unknown skin Verified 02/01/24 09:59 glycoprotein E, recombinant tested and [From Shingrix (PF)] raised a huge bump zoster vaccine live Allergy Unknown see Verified 02/01/24 09:59 entries above regarding skin tests for shingles vaccine crab AdvReac Unknown stomach Verified 02/01/24 09:59 ache squash AdvReac Unknown GI SYMPTOMS Verified 02/01/24 09:59 Procedures Performed Operation Date: 02/11/24 11:55 Actual Procedures p Open Incisional Hernia Repair with Mesh(Not Applicable) - Jarad Christian, Hospital Course (1) Incisional hernia, incarcerated: This is an 83yF who presented to the [facility] [place] on 02/11/24 for an electively scheduled open incisional hernia repair with Dr. Christian. The patient tolerated the procedure well, see op note for full details. While in the PACU the patient was having incisional pain made worse with movement. Abdominal binder in place and vitals stable. It was decided upon to keep the patient overnight for observation and pain control. Post op her diet was advanced as tolerated and pain was man aged on prn medications. On POD#1 the patient's pain was improved and she was feeling comfortable for discharge. Diet tolerated. Dispo instructions reviewed. She was instructed to follow up in the office within 1-2 weeks time. Total Time Total Time Spent Total Time Spent (In Minutes): 10 Discharge Plan Discharge Items Patient Disposition: Home - Self-Care Reason For Visit: S/P OPEN INCISIONAL HERNIA REPAIR Discharge Diagnosis: incisional hernia repair Activity: Per Instructions section Lifting: No more than 10 pounds Bathing Comment: may shower starting 02/12/24; no soaking in tubs/pools x 2 weeks Exercise/Sports: Wait until after follow-up appointment Driving/Machine Use: no driving while on narcotics for pain Non-emergency contact: Surgeon Call non-emergency contact if: your symptoms worsen, your pain is not controlled, your pain is concerning for you, you have a fever, your temperature is above 101.5, your wound has increased redness and your wound has increased drainage Follow-up/Referrals: Jarad Christian DO [Surgeon] - 02/26/24 9:45 am (Please call to schedule follow up in clinic within 2 weeks) Apple Curran MD [Primary Care Provider] - Diet: Regular Addtl Attending Provider Instructions: You may remove your outer surgical dressings on 02/14/24. You will have small white bandages on underneath that are over your incisions. You may shower with these on. They will tend to fall off on their own within 7-10 days. You can resume your Plavix on Thursday02/13/24 You may use Ibuprofen over the next few days as needed until Thursday02/15/24 as prescribed continue to wear your abdominal binder day and night until your follow up. may remove it to shower as needed Pending Studies at Discharge: No Stand-Alone Forms: Anesthesia/Sedation, Adult, [facility] Medications and DC Order Prescriptions: New hydrocodone-acetaminophen 5-325 mg tablet 1 - 2 tab PO .q4h- q6h PRN (Reason: pain, for initial therapy, max 6 tabs per day ) Qty: 15 0RF Continued ezetimibe 10 mg tablet 10 mg PO QAM Qty: 90 3RF mecobalamin (vitamin B12) 1,000 mcg tablet,chewable 1,000 mcg PO QAM cyclobenzaprine 5 mg tablet 5 mg PO UD PRN (Reason: muscle pain) magnesium 250 mg tablet 250 mg PO QDL calcium carbonate-vitamin D3 600 mg(1,500mg) -400 unit capsule 1 cap PO QAM Patient Comments: 1 cap PO DAILY; Rx Instructions: 1 cap PO DAILY; levothyroxine 112 mcg tablet 112 mcg PO QAM Qty: 90 3RF triamcinolone acetonide 0.5 % ointment See Rx Instructions topical BID 14 Days Qty: 15 0RF Rx Instructions: pea sized amount topically on vulva twice a day for 2 wks. multivitamin Tablet 1 tab PO QAM ibuprofen 200 mg capsule 200 mg PO UD PRN (Reason: pain) atenolol 25 mg tablet 50 mg PO HS citalopram 20 mg tablet 20 mg PO QAM estradiol 0.01 % (0.1 mg/gram) cream 1 g vaginal UD Patient Comments: a few times per week/days vary Rx Instructions: Use daily for 14 days, then 2-3 times per week thereafter. cholecalciferol (vitamin D3) [Vitamin D3] 25 mcg (1,000 unit) tablet 5,000 unit PO QAM Held clopidogrel 75 mg tablet 75 mg PO Q2D Qty: 45 3RF Hold Instructions: Resume on 05/08/23. Discharge Orders: Discharge Order (Routine); Ordered 02/12/24 Ordered By: Susan Castillo/Other Patient Handouts: DVT Post Op Prevention Admission Data Admit Date/Time: 02/11/24 17:06 Attending Provider: Jarad Christian Admit Provider: Jarad Christian Primary Care Provider: Apple Curran Other Interventions: Discharge Summary Assessment (RN) Last Done: 02/12/24 10:28 Coding Level of Care Code 47380 IN/OBS DISCH 30 MIN/LESS Diagnoses Incisional hernia, incarcerated K43.0
== END 2024-02-12 11:17 | disposition home or self-care (01) ==
LOC: 3W 10:18 → ASU 10:18
DX: Z87.09 Personal history of other diseases of the respiratory system; Z86.16 Personal history of COVID-19; K43.0 Incisional hernia with obstruction, without gangrene; Z90.49 Acquired absence of other specified parts of digestive tract; Z79.02 Long term (current) use of antithrombotics/antiplatelets; Z79.899 Other long term (current) drug therapy; Z91.018 Allergy to other foods; Z88.7 Allergy status to serum and vaccine; Z87.891 Personal history of nicotine dependence; E03.9 Hypothyroidism, unspecified; E78.5 Hyperlipidemia, unspecified; G60.3 Idiopathic progressive neuropathy; I47.10 Supraventricular tachycardia, unspecified; Z88.1 Allergy status to other antibiotic agents; Z88.0 Allergy status to penicillin; Z88.8 Allergy status to other drugs, medicaments and biological substances